=== PATIENT | male | born 1945 | race Caucasian/White ===

== ENCOUNTER 2023-02-14 16:32 | Emergency (ER) | payer MEDICARE, SELFPAY ==
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
--- NOTE | ~2023-02-14 | XR_ITS ---
EXAM: XR abdomen/kub 1V DATE: 02/14/2023 17:12 HISTORY: left anterior abd. pain and bruising . COMPARISON: None available. FINDINGS: Clear lung bases. Normal bowel gas pattern. No organomegaly. Multiple pelvic phleboliths. Severe lumbar degenerative disc disease. Severe right hip arthritis. IMPRESSION: No acute osseous finding. No radiographic evidence of obstruction or ileus. Reviewed, dictated and finalized at location K. IMPRESSION: No acute osseous finding. No radiographic evidence of obstruction o r ileus.
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
[2023-02-14 16:48] VITALS: BP 156/74; PULSE 63; RESP 18; TEMP 36.6; O2SAT 100
== END 2023-02-14 17:32 | disposition home or self-care (01) ==
PROVIDERS: Emergency Provider Nurse Practitioner Family
DX: S80.812A Abrasion, left lower leg, initial encounter (principal); S20.212A Contusion of left front wall of thorax, initial encounter; V18.4XXA Pedal cycle driver injured in noncollision transport accident in traffic accident, initial encounter; Y93.55 Activity, bike riding; F41.9 Anxiety disorder, unspecified; F32.A Depression, unspecified
CPT/HCPCS: 71046; 71100; 74018; 99213; G0463

== ENCOUNTER 2023-12-13 11:51 | Emergency (ER) | payer MEDICARE, SELFPAY ==
--- NOTE | 2023-12-13 12:03 | ED.EAR ---
HPI - Ear Problem General Chief complaint: Ear Stated complaint: blocked ears Time Seen by Provider: 12/13/23 12:03 Source: patient Mode of arrival: ambulatory Limitations: no limitations History of Present Illness HPI Narrative: 78 yo M reports bilateral cerumen impaction. Was just at office to have his hearing aids checked and ear tech told him he needed ear wax removed. Pt denies pain. All systems reviewed and negative except as noted above. Related Data Home Medications Medication Instructions Recorded Confirmed clonazepam 1 mg tablet 1 mg PO DAILY 02/14/23 12/13/23 imipramine HCl 25 mg tablet 25 mg PO DAILY 02/14/23 12/13/23 Allergies Allergy/AdvReac Type Severity Reaction Status Date / Time No Known Allergies Allergy Verified 12/13/23 12:08 Review of Systems Review of Systems: CONSTITUTIONAL: Denies fever, chills, or sweats. EYES: Denies visual changes, redness, or discharge. ENT: Denies rhinorrhea, congestion, sore throat, or otalgia. Reports bilateral cerumen impaction. CARDIOVASCULAR: Denies chest pain, palpitations, or edema. RESPIRATORY: Denies cough or dyspnea. GASTROINTESTINAL: Denies abdominal pain, nausea, vomiting, or diarrhea. GENITOURINARY: Denies dysuria or hematuria. SKIN: Denies rash or itching. MUSCULOSKELETAL: Denies back pain, joint pain, or myalgia. NEUROLOGIC: Denies headache, numbness, or weakness. PSYCHIATRIC: Denies anxiety or depression. All other systems reviewed are negative, except as documented in HPI. PMFSH Family History Family History Father Hypertension Family history of lung cancer Grandparent Family history of lung cancer Social History Social History Alcohol intake: current Comments At time of signature, agree with nursing past medical, surgical, social and family history. There is no relevant family history pertinent to the presenting complaint. Exam Narrative: GENERAL: This is a well-nourished, well-developed patient, in no apparent distress. HEAD: normocephalic, atraumatic. EYES: PERRL. Sclera clear/white. Vision is grossly intact. EARS: External ears normal, Cerumen impacted to bilateral ear canals. After irrigation , bilateral TMs normal. no perforation bilaterally. NOSE: External nose normal NECK: Neck supple, non-tender without lymphadenopathy, masses or thyromegaly. CARDIOVASCULAR: Regular rate and rhythm without murmurs, gallops, or rubs. RESPIRATORY: Clear to auscultation. Breath sounds equal bilaterally. No wheezes, rales, or rhonchi. SKIN: warm, Dry, intact with no suspicious lesions or rash, good texture and turgor. NEURO: awake, alert, and oriented to person, place and time. There were no obvious focal neurologic abnormalities. EXTREMITIES: No joint tenderness, effusion, or edema noted. Course Course Level of Care: Express Care Visit Vital Signs Vital signs: Vital Signs Temperature 36.6 C 12/13/23 12:08 Pulse Rate 42 L 12/13/23 12:08 Respiratory Rate 16 12/13/23 12:08 Blood Pressure 145/77 H 12/13/23 12:08 Pulse Oximetry 99 12/13/23 12:08 Oxygen Delivery Room Air 12/13/23 12:08 Temperature 36.6 C 12/13/23 12:08 Pulse Rate 42 L 12/13/23 12:08 Respiratory Rate 16 12/13/23 12:08 Blood Pressure 145/77 H 12/13/23 12:08 Pulse Oximetry 99 12/13/23 12:08 Oxygen Delivery Room Air 12/13/23 12:08 Reviewed Procedures Ear Wax Removal Both Ears: Ear Wax Removal Date: 12/13/23 Ear Wax Removal Time: 12:30 Cerumenolytic Used: other ( warm water) Results: Re-examined: cerumen removed completely TM Examination: TM(s) intact, normal appearance Ear Canal Exam: atraumatic Patient Tolerated Procedure: well Complications: no problems Technique: ear canal irrigated and ear canal curetted Medical Decision Making
[2023-12-13 12:08] VITALS: BP 145/77; PULSE 42; RESP 16; TEMP 36.6; O2SAT 99
== END 2023-12-13 12:34 | disposition home or self-care (01) ==
PROVIDERS: Emergency Provider Nurse Practitioner Family; PCP Nurse Practitioner Family
DX: H61.23 Impacted cerumen, bilateral (principal); F41.9 Anxiety disorder, unspecified; F32.A Depression, unspecified
CPT/HCPCS: 69210; 99213; G0463

== ENCOUNTER 2024-12-07 11:20 | Emergency (ER) | payer MEDICARE, SELFPAY ==
[2024-12-07 11:32] VITALS: BP 146/75; PULSE 65; RESP 18; TEMP 36.8; O2SAT 100
--- NOTE | 2024-12-07 11:34 | ED_ITS ---
HPI - Ear Problem General Chief complaint: Ear Stated complaint: bilateral Ear Wax stuck Time Seen by Provider: 12/07/24 12:03 Source: patient, RN notes reviewed and old records reviewed Mode of arrival: ambulatory Limitations: no limitations History of Present Illness HPI Narrative: 79-year-old male presents to the [facility] with concerns ear wax in his ears, worse on the right than the left. States that 4 days ago he felt like his ears were ?stopped up. ? States that about a year ago he started having some abnormal sounds with his hearing aids and was told that he had earwax impaction. States he is having those abnormal sounds currently Treatment prior to arrival: none Related Data Home Medications ?Medication ?Instructions ?Recorded ?Confirmed ?Last Taken ?Type clonazepam 1 mg tablet 1 mg PO DAILY 02/14/23 12/13/23 Unknown History imipramine HCl 25 mg tablet 25 mg PO DAILY 02/14/23 12/13/23 Unknown History Allergies Allergy/AdvReac Type Severity Reaction Status Date / Time No Known Allergies Allergy Verified 12/07/24 11:39 Review of Systems Review of Systems: All systems reviewed & are unremarkable except as noted in HPI and below Constitutional: Constitutional: Reports no additional constitutional complaints ENT: Reports as per HPI Cardiovascular: Cardiovascular: Reports no additional cardiovascular complaints, Denies chest pain and Denies dyspnea Respiratory: Respiratory: Reports no additional respiratory complaints, Denies chest congestion, Denies cough and Denies dyspnea Musculoskeletal: Musculoskeletal: Reports no additional musculoskeletal complaints Integumentary/Breasts: Skin/Breast: Reports system reviewed and no additional complaints, except as docu PMFSH Family History Family History Father Hypertension Family history of lung cancer Grandparent Family history of lung cancer Social History Social History Alcohol intake: current Comments At the time of my signature, I reviewed and agree with the nursing past medical, surgical, social, and family history. There is no relevant family history pertinent to the patient complaint. Exam Const: General: cooperative, healthy appearing, comfortable, no acute distress, well developed, alert and well nourished Nutritional Appearance: well nourished Orientation/consciousness: patient oriented x3 Limitations: no limitations HENMT: Head: normal to inspection Ears: external ears normal, mastoids normal, no periauricular adenopathy, Abnormal EAC present cerumen impaction bi lateral (Greater on right than left) and unable to visualize TM bilaterally Eyes: General: appearance normal, both eyes and all related structures Alignment and Position: alignment normal Neck: Neck: normal visual inspection, full ROM, no lymphadenopathy and no men ingeal signs Chest: Chest palpation & inspection: normal inspection of the chest Resp: Effort & Inspection: normal respiratory effort and able to speak in complete sentences Auscultation: clear to auscultation bilaterally, no crackles, no rales, no rhonchi and no wheezes Cardio: Rate: regular rate Skin: General skin exam: normal color and no rashes or lesions noted Neuro: General: patient oriented x3, gait normal, moves all extremities and no meningeal signs Cognition (Neuro): normal cognition Speech: normal speech Gait exam (Neuro): Normal gait present Extrem: General: normal to inspection, full ROM, capillary refill normal and normal gait Psych: Appearance: grossly normal and well kempt Mental Status: mental status grossly normal Speech and movement: Normal speech and movement present and Clear speech present Affect: normal affect Attitude: cooperative Course Course Level of Care: Express Care Visit Vital Signs Vital signs: Vital Signs Temperature 98.2 F 12/07/24 11:32 Pulse Rate 65 12/07/24 11:32 Respiratory Rate 18 12/07/24 11:32 Blood Pressure 146/75 H 12/07/24 11:32 Pulse Oximetry 100 12/07/24 11:32 Oxygen Delivery Room Air 12/07/24 11:32 Temperature 98.2 F 12/07/24 11:32 Pulse Rate 65 12/07/24 11:32 Respiratory Rate 18 12/07/24 11:32 Blood Pressure 146/75 H 12/07/24 11:32 Pulse Oximetry 100 12/07/24 11:32 Oxygen Delivery Room Air 12/07/24 11:32 Reviewed Procedures Ear Wax Removal Both Ears: Ear Wax Removal Date: 12/07/24 Ear Wax Removal Time: 12:10 Cerumenolytic Used: other (peroxide and water) Results: Re-examined: cerumen removed completely TM Examination: TM(s) intact, normal appearance Ear Canal Exam: atraumatic Patient Tolerated Procedure: well Complications: no problems Technique: ear canal irrigated and ear canal curetted Medical Decision Making MDM Narrative Medical decision making narrative: Patient sitting comfortably in exam room. Nontoxic, vitals stable. Patient in no acute distress Patient presents for ear wax impaction. Cleaned ears with water peroxide combin ation. Patient tolerated well Discussed [id number] treatments Patient appropriate for outpatient treatment and follow-up Discharge instructions reviewed with patient, as well as provided in writing per nursing staff. The instructions also include specific and strict return/GO TO THE ER as well as f/u information. All questions have been answered, and the patient deny any further questions with discharge and discharge plan. Some parts of this dictation were generated by voice recognition software and may contain typographical and/or grammatical inaccuracies. Differential Diagnosis Differential Diagnosis: Cerumen impaction, otitis media Medical Records Medical records reviewed: Yes I reviewed the external patient's medical records. Vital Signs Vital Signs: Vital Signs Temperature 98.2 F 12/07/24 11:32 Pulse Rate 65 12/07/24 11:32 Respiratory Rate 18 12/07/24 11:32 Blood Pressure 146/75 H 12/07/24 11:32 Pulse Oximetry 100 12/07/24 11:32 Oxygen Delivery Room Air 12/07/24 11:32 Temperature 98.2 F 12/07/24 11:32 Pulse Rate 65 12/07/24 11:32 Respiratory Rate 18 12/07/24 11:32 Blood Pressure 146/75 H 12/07/24 11:32 Pulse Oximetry 100 12/07/24 11:32 Oxygen Delivery Room Air 12/07/24 11:32 Reviewed Lab Data Lab results reviewed: Yes I reviewed the patient's lab results. Labs: Reviewed Critical Care Time Critical Care Time Critical Care Time: No Discharge Plan Discharge Clinical Impression: Bilateral impacted cerumen Patient Disposition: Home, Self-Care Condition: Stable Instructions: Antibiotic Form, Carbamide Peroxide (Into the ear) Additional Instructions: You had Cerumen (EAR wax impaction). Do not use Q-tips or put anything in the ear. This can damage the ear. Instead , use Debrox or ear wax remover. Place 5 drops in ear after a hot shower and place a warm compress over the ear for 20 minutes. alternate years doing this every 3-4 days. It will break up the wax gently. Do not use too much pressure. Once you have all of the cerumen out of your ears, you may do preventative treatment to prevent this from happening again. Use 5 drops once weekly after a hot shower. Patient Language: Iranian Prescriptions: No Action clonazepam 1 mg tablet 1 mg PO DAILY imipramine HCl 25 mg tablet 25 mg PO DAILY Follow-up/Referrals: ZHANE,TXE ROACH [Primary Care Provider] - 2 Weeks ([facility] care follow up ) Time of Disposition: 12:19
[2024-12-07] MEDS: HYDROGEN PEROXIDE 3% SOLN(*SP) 473 ML BOTTLE 120 ML IRRIGATION (12:09)
--- OUTSIDE RECORDS SUMMARY | 2024-12-07 13:19 | XMS_ITS ---
Author Organization [facility] Address [address] [facility] [address] [place] [address] Care Team Providers Care Advanced Practice Nurse Name Role Phone Kiesha Diehl Unavailable [phone] Fred Lr Unavailable [phone] REASON FOR VISIT phq less than 5, Anger issues, mental issues over the years(suicidal, depression, panic attack, anxiety and paranoia, related to time he served in [employer] ), Medications Medication SIG (Take, Route, Fr equency, Duration) Notes Start Date End Date Status clonazePAM 1 MG 1 tablet Oral Once a day for 30 days 07/14/2024 Active Imipramine HCl 50 MG 3 tablets every nig ht Oral Once a day for 90 days Active Social History Tobacco Use: Social History Observation Description Date Details (start date - stop date) Former Smoker NA - NA Sex Assigned At : Social History Observation Description Sex Assigned At Male Household Question Answer Notes Marital status: Tobacco Control (Standard) Question Answer Notes Tobacco use: Former smoker Encounters Encounter Location Date Provider Diagnosis [facility] [employer] [facility] [address] [address] 10/21/2024 Fred Lr Generalized anxiety disorder F41.1 and Major depression, recurrent, full remission F33.42 Assessments Encounter Date Diagnosis (ICD Code) Assessment Notes Treatment Notes Treatment Clinical Notes Section Notes 10/21/2024 Generalized anxiety disorder (ICD-10 - F41.1) Efra Nina is a 78 year old male seen today for initial assessment to start individual psychotherapy. He has seen Kiesha Diehl for medication therapy. Hx of depression, which is in remission, and anxiety reported by client. Beliefs that he has suffered from both for most of his life. One psych admission reported by client due to entertaining suicidal thoughts. Hx positive positive for out patient therapy. Client admitted that he continues to carry a lot of guilt due to of a former co-worker who he believes committed suicide. Client born in [facility] but grew up all over the place due to father's employment. He described childhood a good in spite of having moved around a lot. Client has been for many years and has a son and daugher. Relationship with children is good. Relationship with mother was better then with father, we butted heads a lot . Client is one three; two brothers who he has a good relationship with. 10/21/2024 Major depression, recurrent, full remission (ICD-10 - F33.42) Efra Nina is a 78 year old male seen today for initial assessment to start individual psychotherapy. He has seen Kiesha Diehl for medication therapy. Hx of depression, which is in remission, and anxiety reported by client. Beliefs that he has suffered from both for most of his life. One psych admission reported by client due to entertaining suicidal thoughts. Hx positive positive for out patient therapy. Client admitted that he continues to carry a lot of guilt due to of a former co-worker who he believes committed suicide. Client born in [facility] but grew up all over the place due to father's employment. He described childhood a good in spite of having moved around a lot. Client has been for many years and has a son and daugher. Relationship with children is good. Relationship with mother was better then with father, we butted heads a lot . Client is one three; two brothers who he has a good relationship with. 10/21/2024 Other Client participated in individual psychotherapy(CB T/Supportive) related to his hx of anxiety and depression. Based on today's session continued psychotherapy is recommended with change in frequency of session(two weeks). Client presented to session well groomed and fully oriented with no risk of harm to self or others. Client verbal and engaged through out session becoming tearful at one point during session. Reported upon presentation that he has been okay since last seen on 09.15.2024. Added that he has been calmer and not as upset. continues to comment to the change in him. Briefly spoke about his concern and worry over 28 year old granddaughter and her weight issues. Primary focus of session however continued to be his time in [place] and working for the [employer] and how both have contributed to his depression and anxiey. Client receptive to session feedback. Next session in two weeks. Efra Nina is a 78 year old male seen today for initial assessment to start individual psychotherapy. He has seen Kiesha Diehl for medication therapy. Hx of depression, which is in remission, and anxiety reported by client. Beliefs that he has suffered from both for most of his life. One psych admission reported by client due to entertaining suicidal thoughts. Hx positive positive for out patient therapy. Client admitted that he continues to carry a lot of guilt due to of a former co-worker who he believes committed suicide. Client born in [facility] but grew up all over the place due to father's employment. He described childhood a good in spite of having moved around a lot. Client has been for many years and has a son and daugher. Relationship with children is good. Relationship with mother was better then with father, we butted heads a lot . Client is one three; two brothers who he has a good relationship with. Plan Of Treatment Next Appt Details Follow Up: 2 Weeks, Reason: Provider Name:Fred garvin, 12/15/2024 01:00:00 PM, [facility] [facility], [address], [address], Provider Name:Kiesha Diehl, 01/12/2025 08:45:00 AM, [address], [address], [address], Progress Notes * EFRA NINA EDUARDODOB:1945 (78 yo M)Acc No.[id number]:10/21/2024 Patient: EFRA JEREZ Provider: Edvin Lr LCPC :1945 A ge:78 Y S ex:Male Date:10/21/2024 Address:[address] [place], [place] [id number] Data: * Time Tracker: * Date Start Time End Time Duration User Type Captured By Mode Notes 10/21/2024 01:55 PM 02:53 PM 00:58:32 Therapist Fred Lr Timer * Chief Complaints: * P hq less than 5 Anger issues, mental issues over the years(suicidal, depression, panic attack, anxiety and paranoia, related to time he served in [place] ), * HPI: D epression Screening: ZOIE-7 (2018 Edition) F eeling nervous, anxious, or on edge N ot at all N ot being able to stop or control worrying?Not at all W orrying too much about different things N ot at all T rouble relaxing N ot at all B eing so restless that it is hard to sit still N ot at all B ecoming easily annoyed or irritable N ot at all F eeling afraid as if something awful might happen N ot at all I f you checked any problems, how difficult have they made it for you to do your work, take care of things at home, or get along with other people? N ot difficult at all I nterpretation of Total ( 0 to 4) No Anxiety Referral source s elf-referral . A nger management ?with a history of intermittent explosive disorder with aggressive behaviors(down grading self hitting and kicking objects) with inappropriate anger which has been long standing (probably for the pst ten years), aggravated by due to his experiences in [place], (9 months there), and relieved by compliance with medication therapy active counseling . A nxiety w ith excessive worry(about blaming self when something goes wrong and get downs on self, beats self, wants to be a perfectionist and suffers from survival guilt, and lettingself down)< with panic attacks which has been long-standing(maybe for as long as he can recall, maybe since 1989), aggravated by difficult work, financial and/or relationship issues and relieved by compliance with medication therapy active counseling .?Depression w ith feelings of guilt with sad mood with suicidal thoughts(last had thoughts ) with feeling of hopelessness and helplessness which has been long-standing(since 1994), aggravated by thoughts he was to blame for an ex employee's , and relieved by compliance with medication therapy active counseling . H omicidal ideation D enied by client . M ood lability D enied by client . O bsessive thoughts w hich cause marked distress which interfere with activities of daily living which has been long-standing(for as long as he can recall), aggravated by time in [place] and of a former employee(1994), and relieved by compliance with medication therapy active counseling . P sychosis D enied by client . S leep disturbance w ith difficulty falling asleep with difficulty staying asleep has been long-standing(since 1994) aggravated by time in [place] and\ of a former client and relieved by compliance with medication therapy . S ubstance abuse D enied by client . S uicidal ideation has a history of previous suicide attempts(1994) last had thoughts in 1994, aggravated by(Time in [place] and of a former employee) and relieved by active counseling with access to local suicide hotline and prevention . A DHD D enied . P sychotherapy H x positive for out patient therapy. . P TSD D enied . M manuel N o impairment present or history of memory concerns reports. . A ppetite u p and down . 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 C urrent probation / parole n o . H istory of arrests n o . H istory of incarcerations n o .?Legal history n o . P ending charges n o . C [place]-Suicide Severity Rating Scale: Suicide Risk (CSRS-screener) i n the past one month Have you wished you were or wished you could go to sleep and not wake up? N o D epression screening: PHQ-9 L ittle interest or pleasure in doing things?Not at all F eeling down, depressed, or hopeless N ot at all T rouble falling or staying asleep, or sleeping too much N ot at all F eeling tired or having little energy N ot at all P oor appetite or overeating N ot at all F eeling bad about yourself or that you are a failure, or have let yourself or your family down N ot at all T rouble concentrating on things, such as reading the newspaper or watching television N ot at all M oving or speaking so slowly that other people could have noticed; or the opposite, being so fidgety or restless that you have been moving around a lot more than usual N ot at all T houghts that you would be better off or of hurting yourself in some way N ot at all Intervention D epression Screening Findings N egative S uicide Risk Assessment Performed 0 10/21/2024 * Family History: F ather: . M other: . 2 brother(s) . 1 son(s) , 1 daughter(s) . .? Relationship with brothers is good while relationship children is also good; relationship with father was not that good we butted heads ; relationship with mother was great. * Social History: T obacco Use: T obacco Control (Standard) T obacco use: F ormer smoker M igrated Social History: M igrated Social History: Alcohol Intake: Occasional 01/14/2024,Tobacco Years: Former smoker 01/14/2024. H ousehold: H ousehold M arital status: m arried * Medications: T akingclonazePAM 1 MG Tablet 1 tablet Oral Once a day Imipramine HCl 50 MG Tablet 3 tablets every night Oral Once a day Medication List reviewed and reconciled with the patientTaking clonazePAM 1 MG Tablet 1 tablet Oral Once a day Taking Imipramine HCl 50 MG Tablet 3 tablets every night Oral Once a day Medication List reviewed and reconciled with the patient Assessment: * Assessment: 1. G eneralized anxiety disorder - F41.1 (Primary) 2 . M ajor depression, recurrent, full remission - F33.42 Efra Nina is a 78 year old male seen today for initial assessment to start individual psychotherapy. He has seen Kiesha Diehl for medication therapy. Hx of depression, which is in remission, and anxiety reported by client. Beliefs that he has suffered from both for most of his life. One psych admission reported by client due to entertaining suicidal thoughts. Hx positive positive for out patient therapy. Client admitted that he continues to carry a lot of guilt due to of a former co-worker who he believes committed suicide. Client born in [facility] but grew up all over the place due to father's employment. He described childhood a good in spite of having moved around a lot. Client has been for many years and has a son and daugher. Relationship with children is good. Relationship with mother was better then with father, we butted heads a lot . Client is one three; two brothers who he has a good relationship with. Plan: * Treatment: * Procedure Codes: 9 6127 BEHAV ASSMT W/SCORE & DOCD/STAND [id number] PSYCHOTHERAPY W/PATIENT 60 MINUTES * Follow Up: 2 Weeks * Billing Information: * Visit Code: * Procedure Codes: 42506 BEHAV ASSMT W/SCORE & DOCD/STAND INSTRUMENT. 10909 PSYCHOTHERAPY W/PATIENT 60 MINUTES. * RVISOR FINISHING Sign off status: Completed Signatures: No Ad Hoc Signature Added true * Provider: Edvin Lr LCPC Date: 0 10/21/2024 Generated for Ramy delgado/Milagro/Alexandra on: 0 12/07/2024 01:18 PM SUPERVISOR FINISHING History and Physical Notes * HPI (History of Present Illness) Category Sub-Category Detail Notes Category Not es Depression screening PHQ-9 Little inte rest or pleasure in doing things: Not at all Feeling down, depressed, or hopeless: No t at all Trouble falling or staying asleep, or sl eeping too much: Not at all Feeling tired or having little energy: N ot at all Poor appetite or overeating: Not at all Feeling bad about yourself o r that you are a failure, or have let yourself or your family down: Not at all Trouble concentrating on thi ngs, such as reading the newspaper or watching television: Not at all Moving or speaking so slowly that other people could have noticed; or the opposite, being so fidgety or restless that you have been moving around a lot more than usual: Not at all Thoughts that you would be b veto off or of hurting yourself in some way: Not at all Intervention Depression Screening Findings: N egative Suicide Risk Assessment Performed: 10/21 Depression Screening ZOIE-7 (2018 Edition) Feeling nervous, anxious, or on edge: Not at all Referral source self-referral . Anger management with a history of intermittent explosive disorder with aggressive behaviors(down grading self hitting and kicking objects) with inappropriate anger which has been long standing (probably for the pst ten years), aggravated by due to his experiences in [place], (9 months there), and relieved by compliance with medication therapy active counseling . Anxiety with excessive worry(about blaming self when something goes wrong and get downs on self, beats self, wants to be a perfectionist and suffers from survival guilt, and lettingself down)< with panic attacks which has been long-standing(maybe for as long as he can recall, maybe since 1989), aggravated by difficult work, financial and/or relationship issues and relieved by compliance with medication therapy active counseling . Depression with feelings of guilt with sad mood with suicidal thoughts(last had thoughts ) with feeling of hopelessness and helplessness which has been long-standing(since 1994), aggravated by thoughts he was to blame for an ex employee's , and relieved by compliance with medication therapy active counseling . Homicidal ideation Denied by client . Mood lability Denied by client . Obsessive thoughts which cause marked distress which interfere with activities of daily living which has been long-standing(for as long as he can recall), aggravated by time in [place] and of a former employee(1994), and relieved by compliance with medication therapy active counseling . Psychosis Denied by client . Sleep disturbance with difficulty falling asleep with difficulty staying asleep has been long-standing(since 1994) aggravated by time in [place] and\ of a former client and relieved by compliance with medication therapy . Substance abuse Denied by client . Suicidal ideation has a history of previous suicide attempts(1994) last had thoughts in 1994, aggravated by(Time in [place] and of a former employee) and relieved by active counseling with access to local suicide hotline and prevention . ADHD Denied . Psychotherapy Hx positive for out patient therapy. . PTSD Denied . Memory No impairment present or history of memory concerns reports. . Appetite up and down . 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 Current probation / parole no . History of arrests no . History of incarcerations no . Legal history no . Pending charges no . Not being able to stop or control worryi ng: Not at all Worrying too much about different things : Not at all Trouble relaxing: Not at all Being so restless that it is hard to sit still: Not at all Becoming easily annoyed or irritable: No t at all Feeling afraid as if something awful teresa ht happen: Not at all If you checked any problems, how difficult have they made it for you to do your work, take care of things at home, or get along with other people?: Not difficult at all Interpretation of Total: (0 to 4) No Anx iety [place]-Suicide Severity Rating Scale Suicide Risk (CSRS-screener) in the past one month Have you wished you were or wished you could go to sleep and not wake up?: No
--- OUTSIDE RECORDS SUMMARY | 2024-12-07 13:19 | XMS_ITS ---
Author Organization [facility] [employer] [facility] Address [address] [facility] [address] [place] [address] Care Team Providers Care Drug Worker Name Role Phone Kiesha Diehl Unavailable [phone] Fred Lr Unavailable [phone] REASON FOR VISIT Confirmed, Anger issues, mental issues over the years(suicidal, depression, panic attack, anxiety and paranoia, related to time he served in [employer] ), Medications Medication SIG (Take, Route, Fr [...] smoker Encounters Encounter Location Date Provider Diagnosis [facility] [address] [facility] [address] [place] [address] 11/26/2024 Fred Lr Generalized anxiety disorder F41.1 ; Major depression, recurrent, full remission F33.42 and Post-traumatic stress disorder, chronic F43.12 Assessments Encounter Date Diagnosis (ICD Code) Assessment Notes Treatment Notes Treatment Clinical Notes Section Notes 11/26/2024 Generalized anxiety disorder (ICD-10 - F41.1) Efra [...] he believes committed suicide. Client born in [facility] but grew up all over the place [...] who he has a good relationship with. 11/26/2024 Major depression, recurrent, full remission (ICD-10 - [...] he believes committed suicide. Client born in [facility] but grew up all over the place [...] who he has a good relationship with. 11/26/2024 Post-traumatic stress disorder, chronic (ICD-10 - F43.12) Efra Nina is a 78 year old [...] he believes committed suicide. Client born in [facility] but grew up all over the place [...] who he has a good relationship with. 11/26/2024 Other Client particiapted in individual psychotherapy (CBT/Supportive) related to his hx of anxiety depression and PTSD. Based on today's session continued psychotherapy is recommended with no changes to treatment plan. Client presented well groomed and fully oriented with no risk of harm to self or others. Client verbal and engaged through out session with appropriate mood and affect. Reported upon presentation that he has been doing good since last seen on 11.05.2024. Session continued to addresss client's time in [place] and associated distorted and irrational beliefs which have contributed to and supported anxiety and PTSD. Client tearful at times as he discussed struggle with survival's guilt. Believes however that he has been more calm as of late and not as angry. Noted that has shared with him that he has been more calm and not so quick to anger. Client receptive to session feedback. Addded that he is looking forward to [employer] trip later this month. Next session in three weeks. Efra Nina is a 78 year [...] he believes committed suicide. Client born in [facility] but grew up all over the place [...] Of Treatment Next Appt Details Follow Up: 3 Weeks, Reason: Provider Name:Fred garvin, 12/15/2024 01:00:00 PM, [address], [place] [address], [place], [address], Provider Name:Kiesha Diehl, 01/12/2025 08:45:00 AM, [address], [place] [address], [place], [address], Progress Notes * EFRA NINADOB:1945 (78 yo M)Acc No.[id number]:11/26/2024 Patient: EFRA JEREZ Provider: Edvin Lr LCPC :1945 A ge:78 Y S ex:Male Date:11/26/2024 Address:[address] [place], [place] [id number] Data: * Time Tracker: * Date Start Time End Time Duration User Type Captured By Mode Notes 11/26/2024 01:57 PM 02:55 PM 00:57:40 Therapist Fred Lr Timer * Chief Complaints: * C onfirmed Anger issues, mental issues over the years(suicidal, [...] awful might happen N ot at all Referral source s elf-referral . A nger [...] down . L egal Involvement: C urrent Data Developer / social sciences research scientist n o . C urrent probation / [...] sleep and not wake up? N o i n the past one month Have you actually had any thoughts of killing yourself? N o H ave you ever done anything, started to do anything, or prepared to do anything to end your life? Y es * Family History: F ather: . M [...] ajor depression, recurrent, full remission - F33.42 3 . P ost-traumatic stress disorder, chronic - F43.12 Efra Nina is a 78 year old [...] he believes committed suicide. Client born in [facility] but grew up all over the place [...] Plan: * Treatment: * Procedure Codes: 9 0837 PSYCHOTHERAPY W/PATIENT 60 MINUTES * Follow Up: 3 Weeks * Billing Information: * Visit Code: * Procedure Codes: 99333 PSYCHOTHERAPY W/PATIENT 60 MINUTES. * E MAKER Sign off status: Completed Signatures: No Ad Hoc Signature Added true * Provider: Edvin Lr LCPC Date: 0 11/26/2024 Generated for Manni danny/Milagro/Alexandra on: 0 12/07/2024 01:18 PM SPOKE MAKER History and Physical Notes * HPI (History of Present Illness) Category Sub-Category Detail Notes Category Not es Depression Screening ZOIE-7 (2018 Edition) Feeling nervous, [...] up and down . Legal Involvement: Current Data Developer / social sciences research scientist no . Current probation / parole no [...] awful teresa ht happen: Not at all [place]-Suicide Severity Rating Scale Suicide Risk (CSRS-screener) in the past one month Have you wished you were or wished you could go to sleep and not wake up?: No in the past one month Have y ou actually had any thoughts of killing yourself?: No Have you ever done anything, started to do anything, or prepared to do anything to end your life?: Yes
--- OUTSIDE RECORDS SUMMARY | 2024-12-07 13:19 | XMS_ITS | Clinical Summary ---
Author Organization [facility] Address Critical access hospital[address] [place] [address] Care Team Providers Care Corporate Planning Manager Name Role Phone Galilea Lewis Primary Care Provider [phone] Allergies No known active allergies Medications clonazePAM (KLONOPIN) 1 MG tablet Take 1 tablet (1 mg total) by mouth every evening. 05/10/2023 Active imipramine (TOFRANIL) 50 MG tablet Take 3 tablets (150 mg total) by mouth nightly at bedtime. Active Vitamin D3 125 mcg Tab Take 1 tablet (125 mcg total) by mouth daily. Active Active Problems Problem Noted Date Diagnosed Date Adult BMI 28.0-28.9 kg/sq m 10/20/2024 Anxiety 05/13/2023 Macular degeneration of both eyes, unspecified t ype 05/13/2023 Resolved Problems Problem Noted Date Diagnosed Date Resolved Date Toenail fungus 05/13/2023 10/20/2024 Encounters Date Type Department Care Team Description 11/09/2024 Telephone [facility] [address] [phone] Galilea Lewis FNP Lab Results 11/06/2024 10:20 AM SPOOL WINDER Laboratory Only [facility] Internal [address] [phone] Galilea Lewis FNP 11/06/2024 Telephone [facility] Internal [address] [phone] Galilea Lewis FNP Advice 11/06/2024 Travel 10/20/2024 10:00 AM SPOOL WINDER Office Visit [facility] [address] [phone] Galilea Lewis FNP Physical 10/20/2024 Travel from Last 3 Months Immunizations Name Administration Dates Next Due Fluzone High Dose - >Age 65 (Prefilled Syringe) 08/09/2022,07/09/2021,06/28/2020 Hepatitis A (Havrix [address]) 10/21/2015 Influenza (Generic) 07/14/2019, 4,08/11/2013,2011 Influenza Adult (Generic) 08/05/2018,06/2017,08/02/2016,2014 PFIZER COVID-19 (SELF CAP), MRNA, LNP-S, PF, 30 MCG/0.3 ML QUYEN-SUCROSE, IM 01/15/2022 PFIZER COVID-19 (ORIGINAL FORMULATION, PURPLE CAP) mRNA, LNP-S, PF, 30 MCG/0.3 ML DOSE 07/09/2021,12/17/2020,11/25/2020 PFIZER COVID-19 BIVALENT (12 +) mRNA, LNP-S, PF, 30 MCG/0.3 ML DOSE 08/09/2022 Pneumococcal (Pneumovax 23) 01/01/2018 Pneumococcal (Prevnar 13) 12/27/2016 Shingrix 04/07/2018,12/23/2017 Tdap (Generic) 10/19/2015 Family History Medical History Relation Comments Atrial fibrillation Brother 1 Hypertension Brother 1 No Known Problems Brother 2 Cancer Father Lung Cancer Father Alzheimer's disease Maternal Grandfather Alzheimer's disease Mother Lung Cancer Paternal Grandfather Alzheimer's disease Paternal Grandmother Lung Cancer Paternal Uncle Relation Status Comments Brother 1 Alive Brother 2 Alive Father Maternal Grandfather Mother Paternal Grandfather Paternal Grandmother Paternal Uncle Social History Tobacco Use Types Packs/Day Years Used Date Smoking Tobacco: Former Cigarettes 2 14 0 11/14/1966 - 11/14/1980 Smokeless Tobacco: Never Alcohol Use Standard Drinks/Week Comments Not Currently 0 (1 standard drink = 0.6 oz pur e alcohol) 4 beers/year PHQ-2 Answer Date Recorded Patient Health Questionnaire-2 Score 1 10/20/2024 Sex and Gender Information Value Date Recorded Sex Assigned at Not on file Legal Sex Male 9:25 AM CDT Gender Identity Not on file Sexual Orientation Not on file Last Filed Vital Signs Vital Sign Reading Time Taken Comments Blood Pressure 136/70 10/20/2024 10:33 AM SPOOL WINDER Pulse 75 10/20/2024 10:33 AM SPOOL WINDER Temperature 36.8 C (98.2 F) 10/20/2024 10:33 AM SPOOL WINDER Respiratory Rate 16 10/20/2024 10:33 AM SPOOL WINDER Oxygen Saturation 97% 10/20/2024 10:33 AM SPOOL WINDER Inhaled Oxygen Concentration - - Weight 99.4 kg (219 lb 3.2 oz) 10/20/2024 10:33 AM SPOOL WINDER Height 188 cm (6' 2 ) 10/20/2024 10:33 AM SPOOL WINDER Body Mass Index 28.14 10/20/2024 10:33 AM SPOOL WINDER Plan of Treatment Health Maintenance Due Date Last Done Comments Annual Medicare Wellness Visit 2011 DTaP, Tdap and Td Vaccines (3 - Td or Tdap) 09/16/2033 09/16/2023, 10/19/2015 Pneumococcal Vaccine: 65+ Years Completed 01/01/2018, 12/27/2016 Zoster Vaccines Completed 04/07/2018, 12/23/2017 Hepatitis C Completed 05/14/2023 RSV Immunization or 60+ Years Completed 09/16/2023 COVID-19 Vaccine Completed 07/05/2024, 03/2023, 08/09/2022, Additional history exists Influenza Adult Completed 07/05/2024, 03/2023, 08/09/2022, Additional history exists PHQ-2 (Physician Skipwith) Completed 10/20/2024 Meningococcal B Vaccine Aged Out No l onger eligible based on patient's age to complete this topic Meningococcal Vaccine Aged Out No kong filomena eligible based on patient's age to complete this topic RSV Immunizations Under 20 Months Aged Out No longer eligible based on patient's age to complete this topic Procedures Procedure Name Priority Date/Time Associated Diagnosis Comments URINALYSIS, AUTO, COMPLETE Routine 11/06/2024 1:15 PM SPOOL WINDER Anxiety Mild episode of recurrent major depressive disorder (CMS/HCC) Encounter for health maintenance examination in adult COLLECTION VENOUS BLOOD VENIPUNCTURE Routine 11/06/2024 10:43 AM SPOOL WINDER Anxiety Mild episode of recurrent major depressive disorder (CMS/HCC) Encounter for health maintenance examination in adult Vitamin D deficiency, unspecified Encounter for prostate cancer screening Adult BMI 28.0-28.9 kg/sq m Elevated LDL cholesterol level CBC W/DIFF AUTOMATED Routine 11/06/2024 10:43 AM SPOOL WINDER Anxiety Mild episode of recurrent major depressive disorder (CMS/HCC) LIPID PANEL Routine 11/06/2024 10:43 AM SPOOL WINDER Adult BMI 28.0-28.9 kg/sq m Elevated LDL cholesterol level TSH W/REFLEX Routine 11/06/2024 10:43 AM SPOOL WINDER Anxiety Mild episode of recurrent major depressive disorder (CMS/HCC) VITAMIN D, 25 OH Routine 11/06/2024 10:4 3 AM SPOOL WINDER Vitamin D deficiency, unspecified URIC ACID BLOOD Routine 11/06/2024 10:43 AM SPOOL WINDER Encounter for health maintenance examination in adult Anxiety Mild episode of recurrent major depressive disorder (CMS/HCC) COMPREHENSIVE METABOLIC PANEL Routine 11/06/2024 10:43 AM SPOOL WINDER Encounter for health maintenance examination in adult Anxiety Mild episode of recurrent major depressive disorder (CMS/HCC) VITAMIN B-12 Routine 11/06/2024 10:43 AM SPOOL WINDER Anxiety Mild episode of recurrent major depressive disorder (CMS/HCC) MAGNESIUM Routine 11/06/2024 10:43 AM SPOOL WINDER Anxiety Mild episode of recurrent major depressive disorder (CMS/HCC) PROSTATE SPECIFIC ANTIGEN,SCREENING Routine 11/06/2024 10:24 AM SPOOL WINDER Encounter for prostate cancer screening FOLIC ACID SERUM Routine 11/06/2024 10:2 4 AM SPOOL WINDER Anxiety Mild episode of recurrent major depressive disorder (CMS/HCC) HEPATITIS C ANTIBODY Routine 05/14/2023 8:45 AM CDT Encounter for hepatitis C screening test for low risk patient from Last 3 Months or Most Recently Relevant to Health Maintenance Results * (ABNORMAL) URINALYSIS (11/06/2024 1:15 PM SPOOL WINDER) COLOR (U) YELLOW 11/06/2024 8:14 PM SPOOL WINDER [facility] TRANSPARENCY CLEAR CLEAR 11/06/2024 8:14 PM SPOOL WINDER [facility] SPECIFIC GRAVITY (U) 1.015 1.003 - 1.040 11/06/2024 8:14 PM SPOOL WINDER [facility] U PH 7.5 5.0 - 9.0 11/06/2024 8:14 PM SPOOL WINDER [facility] PROTEIN RANDOM (U) NEGATIVE NEGATIVE 11/06/2024 8:14 PM [facility] GLUCOSE (U) NEGATIVE NEGATIVE 11/06/2024 8:14 PM [facility] KETONES MG/DL (U) NEGATIVE NEGATIVE 11/06/2024 8:14 PM [facility] BILIRUBIN (U) NEGATIVE NEGATIVE 11/06/2024 8:14 PM [facility] BLOOD (U) NEGATIVE NEGATIVE 11/06/2024 8:14 PM [facility] UROBILINOGEN 1.0 0.0 - 2.0 EU/DL 11/06/2024 8:14 PM [facility] NITRITES NEGATIVE NEGATIVE 11/06/2024 8:14 PM [facility] LEUKOCYTES (U) NEGATIVE NEGATIVE 11/06/2024 8:14 PM [facility] RBC/HPF 0-3 0 - 3 /HPF 11/06/2024 8:15 PM [facility] WBC/HPF 0-3 0 - 3 /HPF 11/06/2024 8:15 PM [facility] EPI/HPF 0-3 /HPF 11/06/2024 8:15 PM SPOOL WINDER [facility] BACTERIA (U) TRACE(A) NONE SEEN 11/06/2024 8:15 PM SPOOL WINDER [facility] URINE SPECIMEN OBTAINED BY CLEAN CATCH PROCEDURE / Unknown 11/06/2024 1:15 PM SPOOL WINDER us Galilea Chanzer FORENSIC MANAGER URINE ORDERABLES Final Result Performing Organization Address City/[facility]/ZIP Co de Phone Number [facility] [address] [place] [address], [place] [phone] * TSH W/REFLEX (11/06/2024 10:43 AM SPOOL WINDER) TSH 2.352 0.358 - 3.740 uIU/ML 11/06/2024 4:00 PM SPOOL WINDER [facility] 11/06/2024 10:4 3 AM SPOOL WINDER us Galilea Chanzer FORENSIC MANAGER LABORATORY Final Result Performing Organization Address City/[facility]/ZIP Co de Phone Number [facility] [address], [place] [phone] * VITAMIN B-12 (11/06/2024 10:43 AM SPOOL WINDER) VITAMIN B12 S/P/B 562 193 - 986 PG/ML 11/06/2024 4:00 PM SPOOL WINDER [facility] 11/06/2024 10:4 3 AM SPOOL WINDER us Galilea Chanzer FORENSIC MANAGER LABORATORY Final Result Performing Organization Address City/[facility] Co de Phone Number [facility] [address] [place] [address], [place] [phone] * (ABNORMAL) COMPREHENSIVE METABOLIC PANEL (11/06/2024 10:43 AM SPOOL WINDER) [facility] SODIUM S/P/B 140 136 - 145 MMOL/L 11/06/2024 4:00 PM [facility] POTASSIUM S/P/B 4.6 3.5 - 5.1 MMOL/L 11/06/2024 4:00 PM [facility] CHLORIDE S/P/B 103 98 - 107 MMOL/L 11/06/2024 4:00 PM [facility] CO2 33.3(H) 21 - 32 MMOL/L 11/06/2024 4:11 PM [facility] Comment:RESULTS CONFIRMED-TE ST REPEATED GLUCOSE 103(H) 70 - 99 MG/DL 11/06/2024 4:00 PM [facility] BUN 16 7 - 18 MG/DL 11/06/2024 4:00 PM [facility] CREATININE S/P/B 0.97 0.70 - 1.30 MG/DL 11/06/2024 4:00 PM [facility] CALCIUM S/P/B 8.7 8.4 - 10.5 MG/DL 11/06/2024 4:00 PM [facility] BILIRUBIN TOTAL S/P/B 0.8 0.2 - 1.0 MG/DL 11/06/2024 4:00 PM [facility] ALKALINE PHOSPHATASE S/P/B 98 45 - 115 U/L 11/06/2024 4:00 PM [facility] AST 27 15 - 37 U/L 11/06/2024 4:00 PM [facility] ALT 27 16 - 63 U/L 11/06/2024 4:00 PM [facility] TOTAL PROTEIN S/P/B 6.6 6.4 - 8.2 G/DL 11/06/2024 4:00 PM [facility] ALBUMIN S/P/B 3.9 3.4 - 5.0 G/DL 11/06/2024 4:00 PM SPOOL WINDER [facility] ANION GAP 3.7(L) 5 - 15 MMOL/L 11/06/2024 4:11 PM SPOOL WINDER [facility] Comment:REFERENCE RANGE NOT ESTABLISHED OSMOLALITY (CALC) 291 MOSM/KG 025 4:00 PM SPOOL WINDER [facility] Comment:REFERENCE RANGE NOT ESTABLISHED GFR ESTIMATE 80(L) >90 ML/MIN/1. 73 M2 11/06/2024 4:00 PM SPOOL WINDER [facility] GFR NOTES GFR REFERENCE S: 11/06/2024 4:00 PM [facility] Comment: THE ESTIMATED GFR IS CALCULATED USING THE 2020 CKD-EPI EQUATION. THE FOLLOWING CATEGORIES FOR GRADING RENAL FUNCTION ARE RECOMMENDED BY THE INTERNATIONAL SOCIETY OF NEPHROLOGY (KDIGO 2012 CLINICAL PRACTICE GUIDELINE). G1,NORMAL OR HIGH: >89 ml/min/1.73 m2 G2,MILDLY DECREASED: 60-89 ml/min/1.73 m2 G3A,MILDLY TO MODERATELY DECREASED: 45-59 ml/min/1.73 m2 G3B,MODERATELY TO SEVERELY DECREASED: 30-44 ml/min/1.73 m2 G4,SEVERELY DECREASED: 15-29 ml/min/1.73 m2 G5,KIDNEY FAILURE: <15 ml/min/1.73 m2 11/06/2024 10:4 3 AM SPOOL WINDER us Galilea RAHMAN LABORATORY Final Result [facility] [address] [place] [address], * LIPID PANEL (11/06/2024 10:43 AM SPOOL WINDER) CHOLESTEROL 164 <200 MG/DL 11/06/2024 4:00 PM SPOOL WINDER [facility] TRIGLYCERIDES 108 <150 MG/DL 11/06/2024 4:00 PM SPOOL WINDER [facility] HDL 55 >40 MG/DL 11/06/2024 4:00 PM [facility] LDL-C 87 <100 MG/DL 11/06/2024 4:00 PM [facility] VLDL CALCULATION 22 5 - 28 MG/DL 11/06/2024 4:00 PM [facility] CHOL/HDL RATIO 3.0 0.0 - 4.0 11/06/2024 4:00 PM [facility] LDL/HDL 1.6 0.41 - 2.13 11/06/2024 4:00 PM [facility] NON HDL CHOLESTEROL 109 <140 MG/DL 11/06/2024 4:00 PM [facility] 11/06/2024 10:4 3 AM SPOOL WINDER Galilea Lewis [facility] LAB[facility]AT[facility] Final Result [facility] [address] [place] [address], * (ABNORMAL) CBC W/DIFF AUTOMATED (11/06/2024 10:43 AM SPOOL WINDER) WBC 5.15 4.00 - 10.80 x10'3/uL 11/06/2024 2:32 PM [facility] RBC 4.46(L) 4.50 - 6.10 x10'6/uL 11/06/2024 2:32 PM [facility] HGB 14.7 13.0 - 18.0 G/DL 11/06/2024 2:32 PM [facility] HCT 44.7 37.0 - 52.0 % 11/06/2024 2:32 PM [facility] MCV 100.2(H) 78.0 - 100.0 FL 11/06/2024 2:32 PM [facility] MCH 33.0(H) 27.0 - 31.0 PG 11/06/2024 2:32 PM [facility] MCHC 32.9(L) 33.0 - 36.0 G/DL 11/06/2024 2:32 PM [facility] RDW 13.6 11.5 - 14.5 % 11/06/2024 2:32 PM [facility] PLT 267 150 - 350 x10'3/uL 11/06/2024 2:32 PM [facility] MPV 12.3(H) 7.4 - 10.4 FL 11/06/2024 2:32 PM [facility] DIFFERENTIAL TYPE AUTOMATED DIFFERENTIAL 11/06/2024 2:32 PM [facility] NEUTROPHILS % 60.3 % 11/06/2024 2:32 PM [facility] LYMPHOCYTES % 26.0 % 11/06/2024 2:32 PM [facility] MONOCYTES % 8.0 % 11/06/2024 2:32 PM [facility] EOSINOPHILS % 4.7 % 11/06/2024 2:32 PM [facility] BASOPHILS % 1.0 % 11/06/2024 2:32 PM [facility] IMMATURE GRANS % 0.0 % 11/06/2024 2:32 PM [facility] ABS. NEUTROPHILS 3.11 1.60 - 8.30 x10'3/uL 11/06/2024 2:32 PM [facility] ABS. LYMPHOCYTES 1.34 0.80 - 4.70 x10'3/uL 11/06/2024 2:32 PM [facility] ABS. MONOCYTES 0.41 0.00 - 1.50 x10'3/uL 11/06/2024 2:32 PM [facility] ABS. EOSINOPHILS 0.24 0.00 - 0.40 x10'3/uL 11/06/2024 2:32 PM SPOOL WINDER [facility] ABS. BASOPHILS 0.05 0.00 - 0.20 x10'3/uL 11/06/2024 2:32 PM SPOOL WINDER [facility] ABS. IMMATURE GRANULOCYTES 0.00 0.00 - 0.03 x10'3/uL 11/06/2024 2:32 PM [facility] 11/06/2024 10:4 3 AM SPOOL WINDER Galilea Chanemma [facility] LABORATORY Final Result Performing Organization Address City/[facility]/ZIP Co de Phone Number [address] [address], [place] [phone] * VITAMIN D, 25 OH (11/06/2024 10:43 AM SPOOL WINDER) VITAMIN D 25 HYDROXY TOTAL S/P/B 73.8 30 - 100 NG/ML 11/06/2024 4:00 PM SPOOL WINDER [facility] Comment: DEFICIENT <20 INSUFFICIENT 20-30 SUFFICIENT 30-100 11/06/2024 10:4 3 AM SPOOL WINDER Galilea Chanemma [facility] Final Result Performing Organization Address City/[facility] Co de Phone Number [address] [address], [place] [phone] * MAGNESIUM (11/06/2024 10:43 AM SPOOL WINDER) MAGNESIUM 2.1 1.8 - 2.4 MG/DL 11/06/2024 4:00 PM SPOOL WINDER [facility] 11/06/2024 10:4 3 AM SPOOL WINDER Galilea Chanemma [facility] Final Result Performing Organization Address City/[facility]/ZIP Co de Phone Number [address] [place] [address], * URIC ACID BLOOD (11/06/2024 10:43 AM SPOOL WINDER) URIC ACID 4.8 3.5 - 7.2 MG/DL 11/06/2024 3:05 PM SPOOL WINDER [facility] 11/06/2024 10:4 3 AM SPOOL WINDER Galilea Lewis [facility] Final Result Performing Organization Address City/[facility]/ZIP Co de Phone Number [address] [address], * PROSTATE SPECIFIC ANTIGEN,SCREENING (11/06/2024 10:24 AM SPOOL WINDER) PSA 3.61 <4.00 NG/ML 11/06/2024 3:04 PM SPOOL WINDER [facility] Comment: ASSAY PERFORMED BY ENZYME IMMUNOASSAY METHODOLOGY USING SIEMENS DIMENSION REAGENT. PATIENT RESULTS DETERMINED BY ASSAYS FROM DIFFERENT MANUFACTURERS AND/OR BY DIFFERENT METHODS MAY NOT BE COMPARABLE. 11/06/2024 10:2 4 AM SPOOL WINDER us Galilea Lewis [facility] Final Result Performing Organization Address City/[facility]/ZIP Co de Phone Number [address] [address], * FOLIC ACID SERUM (11/06/2024 10:24 AM SPOOL WINDER) FOLATE 14.2 8.6 - 58.9 NG/ML 11/06/2024 3:05 PM SPOOL WINDER [facility] 11/06/2024 10:2 4 AM SPOOL WINDER us Calero Dustinemma [facility] Final Result [facility] [address] [facility] [place] [place] [address], [place] [phone] * HEPATITIS C ANTIBODY ([facility] ONLY) (05/14/2023 8:45 AM CDT) HEPATITIS C AB NON-REACTI VE NON-REACT MIKE 05/14/2023 6:56 PM CDT [facility] Comment: ANTIBODIES TO HCV NOT DETECTED. DOES NOT EXCLUDE THE POSSIBILITY OF EXPOSURE TO HCV. 05/14/2023 8:45 AM CDT Galilea Lewis [facility] Final Result [facility] [address] [place] [address], [place] [phone] [id number] from Last 3 Months or Most Recently Relevant to Health Maintenance Insurance MED REPLACE CIGNA CIGNA [facility] Care Teams Corporate Planning Manager Relationship Specialty Start Date End Date Galilea Lewis FNP [address] [place] [address] [phone] PCP - General Nurse Practitioner Family 05/13/23
--- OUTSIDE RECORDS SUMMARY | 2024-12-07 13:19 | XMS_ITS | Patient Health Record ---
Author Organization [facility] [email or web address] Address [facility] [facility] [address] [place] [address] Care Team Providers Care Special Education Assistant Name Role Phone Kiesha Diehl Unavailable [phone] LrFred garvin Unavailable [phone] Migration, Provider Unavailable Unavailable Allergies No Known Allergies Results Component Value Reference Range Notes DRUG SCREEN, 14 DRUGS (DETEC TIMED), URINE Reviewed date:01/14/2024 12:00:00 AM Interpretation: Performing Lab: Notes/Report: Amphetamine negative Barbiturates negative Benzodiazipine negative Buprenorphine negative Cocaine negative MDMA/Ectasy negative Methadone negative Methamphetamine negative Morphine negative note ALL NEGATIVE Oxycodone negative Phenocyclidine negative THC negative Reason For Referral No Information Medications Medication SIG (Take, Route, Fr equency, [...] Question Answer Notes Tobacco use: Former smoker Problems Problem Type SNOMED Code ICD Code Onset Dates Problem Status W/U Status Risk Notes Problem Recurrent major depression in full remission (97307851) Major depressive disorder, recurrent, in full remission (F33.42) Active confirmed Problem Generalized anxiety disorder (63522279) Generalized anxiety disorder (F41.1) Active confirmed Vital Signs Heart Rate 71 /min 01/14/2024 Height-cm 190.50 cm 01/14/2024 Blood pressure diastolic 84 mm Hg 01/14/2024 Weight-kg 102.78 kg 01/14/2024 Height 75.00 in 01/14/2024 Blood pressure systolic 180 mm Hg 01/14/2024 Weight 226.60 lbs 01/14/2024 BMI 28.3 kg/m2 01/14/2024 Encounters Encounter Location Date Provider Diagnosis [place] [address] [address] 01/14/2024 Kiesha Shanita Generalized anxiety disorder F41.1 and Major depressive disorder, recurrent, in full remission F33.42 [place] [address] [address] 07/14/2024 Kiesha Shanita Major depressive disorder, recurrent, in full remission F33.42 and Generalized anxiety disorder F41.1 [place] [address] [address] 08/14/2024 Fred Lr Generalized anxiety disorder F41.1 and Major depression, recurrent, full remission F33.42 [place] [address] [address] 09/15/2024 Fred Lr Generalized anxiety disorder F41.1 and Major depression, recurrent, full remission F33.42 [place] [address] [address] 10/21/2024 Fred Lr Generalized anxiety disorder F41.1 and Major depression, recurrent, full remission F33.42 [place] [address] [address] 11/05/2024 Fredernestina Lr Generalized anxiety disorder F41.1 ; Recurrent major depressive disorder, in full remission F33.42 and Chronic post-traumatic stress disorder F43.12 [facility] [address] [address] 11/26/2024 Fred Lr Generalized anxiety disorder F41.1 ; Major depression, recurrent, full remission F33.42 and Post-traumatic stress disorder, chronic F43.12 [place] [address] [address] 12/09/2023 Provider Migration [place] [address] [address] 01/14/2024 Provider [facility], [facility] [address] [place] [address] 02/29/2024 Provider [facility], [facility] [address] [place] [address] 03/01/2024 [facility], [facility] [address] [place] [address] 05/11/2024 Kiesha Diehl [facility], [facility] [address] [place] [address] 07/14/2024 Kiesha Shanita [facility], [facility] [address] [facility] [address] [place] [address] 08/05/2024 Kiesha Diehl [facility], [facility] [address] [facility] [address] [place] [address] 08/07/2024 Kiesha Diehl [facility], [facility] [address] [facility] [address] [facility] [address] [place] [address] 08/14/2024 Kiesha Diehl Assessments Encounter Date Diagnosis (ICD Code) Assessment Notes Treatment Notes Treatment Clinical Notes Section Notes 07/14/2024 Major depressive disorder, recurrent, in full remission (ICD-10 - F33.42) 07/14/2024 Generalized anxiety disorder (ICD-10 - F41.1) 08/14/2024 Generalized anxiety disorder (ICD-10 - F41.1) Efra [...] committed suicide. Client born in [facility] but grew up all over the place [...] who he has a good relationship with. 08/14/2024 Major depression, recurrent, full remission (ICD-10 - F33.42) Efar Nina is a 78 year old male [...] committed suicide. Client born in [facility] but grew up all over the place [...] who he has a good relationship with. 09/15/2024 Generalized anxiety disorder (ICD-10 - F41.1) Efra [...] committed suicide. Client born in [facility] but grew up all over the place [...] who he has a good relationship with. 09/15/2024 Major depression, recurrent, full remission (ICD-10 - [...] committed suicide. Client born in [facility] but grew up all over the place [...] he has a good relationship with. 10/21/2024 Generalized anxiety disorder (ICD-10 - F41.1) [...] committed suicide. Client born in [facility] but grew up all over the place [...] committed suicide. Client born in [facility] but grew up all over the place [...] who he has a good relationship with. 11/05/2024 Generalized anxiety disorder (ICD-10 - F41.1) Efra [...] committed suicide. Client born in [facility] but grew up all over the place [...] who he has a good relationship with. 01/14/2024 Major depressive disorder, recurrent, in full remission (ICD-10 - F33.42) 01/14/2024 Generalized anxiety disorder (ICD-10 - F41.1) 11/05/2024 Recurrent major depressive disorder, in full remission (ICD-10 - F33.42) Efra Nina [...] committed suicide. Client born in [facility] but grew up all over the place [...] he has a good relationship with. 11/26/2024 Generalized anxiety disorder (ICD-10 - F41.1) [...] committed suicide. Client born in [facility] but grew up all over the place [...] committed suicide. Client born in [facility] but grew up all over the place [...] committed suicide. Client born in [facility] but grew up all over the place [...] who he has a good relationship with. 11/05/2024 Chronic post-traumatic stress disorder (ICD-10 - F43.12) Efra Nina is a [...] committed suicide. Client born in [facility] but grew up all over the place [...] who he has a good relationship with. 07/14/2024 Other Increase imipramine to 150mg daily for anxiety. Patient educated on all medications including potential benefits, side effects, risks. Educated on proper dosing schedule and importance of compliance. [place] PDMP report checked and consistent with prescription history, no controlled substance prescriptions from other providers. 09/15/2024 Other Client participated in individual psychotherapy (CBT/Supportive) related to his hx of anxiety and depression. Based on today's session continued psychotherapy is recommended with no changes to treatment plan. Client presented to session well groomed and fully oriented with no risk of harm to self or others. Client verbal engaged and tearful throught out session. Reported upon presentation that he has felt better since last seen on 08.14.2024; has been calmer and less angry. Noted that has noticed difference in him and his mood. 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 He also spoke about stress associated with years of working for the [employer]. Client receptive to session feedback. Next session [...] committed suicide. Client born in [facility] but grew up all over the place [...] time in [place] and working for the [employer] and how both have contributed to his [...] committed suicide. Client born in [facility] but grew up all over the place [...] who he has a good relationship with. 11/05/2024 Other Client particiapted in individual psychotherapy (CBT/Supportive) [...] been doing good since last seen on 10.21.2023. Added that [facility]. Stated that he found the 20 minute eval frustrarting and a waste of time. Bothered by some of the questions he was asked by the [facility] toll booth operator. Focus of session continued to address his time in [place] and associated survival's guilt. Blieves he is in a good place with less anxiety depression and anger. Client receptive to session feedback. Next session [...] committed suicide. Client born in [facility] but grew up all over the place [...] Addded that he is looking forward to fishing trip later this month. Next session in [...] committed suicide. Client born in [facility] but grew up all over the place [...] with. Plan Of Treatment Next Appt Details Provider Name:Fred garvin, 12/15/2024 01:00:00 PM, [address], [facility] [address], [place], [address], Provider Name:Kiesha Diehl, 01/12/2025 08:45:00 AM, [address], [address], [place], [address], Insurance Providers Payer Name Payer Address Payer Phone Subscriber Number Group Number Insured Name Patient Relationship to Insured Coverage Start Date Coverage End Date All [facility] [address] [address] [place] [address] [id number] EFRA NINA Self - patient is the insured Medical (General) History Surgical History Surgery Date(Month/Year) Cataract surgery (27219) 07/06/2023
--- OUTSIDE RECORDS SUMMARY | 2024-12-07 13:19 | XMS_ITS ---
Author Organization [facility] Address [address] [address] Care Team Providers Care President + Publisher Name Role Phone Kiesha Diehl Unavailable [phone] Be Fred Unavailable [phone] REASON FOR VISIT Anger issues, mental issues over the years(suicidal, depression, panic attack, anxiety and paranoia, related to time he served in [employer] ),, phq less than 5 Medications Medication SIG (Take, Route, Fr equency, [...] smoker Encounters Encounter Location Date Provider Diagnosis [facility] [address] [address] 11/05/2024 Fred Lr Generalized anxiety disorder F41.1 ; Recurrent major depressive disorder, in full remission F33.42 and Chronic post-traumatic stress disorder F43.12 Assessments Encounter Date Diagnosis (ICD Code) Assessment Notes Treatment Notes Treatment Clinical Notes Section Notes 11/05/2024 Generalized anxiety disorder (ICD-10 - F41.1) [...] he believes committed suicide. Client born in [facility] but grew up all over the [...] he has a good relationship with. 11/05/2024 Recurrent major depressive disorder, in full [...] he believes committed suicide. Client born in [facility] but grew up all over the [...] he believes committed suicide. Client born in [facility] but grew up all over the [...] he had [place] with the [place] [facility] regarding his claim. Stated that he found the 20 minute eval frustrarting and a waste of time. Bothered by some of the questions he was asked by the [facility] merchant seaman. Focus of session continued to address his [...] he believes committed suicide. Client born in [facility] but grew up all over the [...] 12/15/2024 01:00:00 PM, [address], [place] [address], [place], [address], Provider Name:Kiesha Diehl, 01/12/2025 08:45:00 AM, [address], [facility] [address], [place], [address], Progress Notes * EFRA NINA EDUARDODOB:1945 (78 yo M)Acc No.[id number]:11/05/2024 Patient: EFRA JEREZ Provider: Edvin Lr LCPC :1945 A ge:78 Y S ex:Male Date:11/05/2024 Address:[address] [place], [place] [id number] Data: * Time Tracker: * Date Start Time End Time Duration User Type Captured By Mode Notes 11/05/2024 12:57 PM 01:57 PM 00:59:47 Therapist Fred Lr Timer * Chief Complaints: * Anger issues, mental issues over the years(suicidal, depression, panic attack, anxiety and paranoia, related to time he served in [employer] [facility] ),Phq less than 5 * HPI: F unctional Status: Referral source s elf-referral . A nger management w ith a history of intermittent explosive disorder with [...] compliance with medication therapy active counseling . D epression w ith feelings of guilt with sad mood with suicidal thoughts(last had thoughts ) with feeling of hopelessness and helplessness which has been long-standing(since 1994), aggravated by thoughts he was to blame for an ex employee's , and relieved by compliance with medication therapy active counseling . Homicidal ideation D enied by client . M ood lability D enied by client . ?Obsessive thoughts w hich cause marked distress which [...] enied by client . S uicidal ideation h as a history of previous suicide attempts(1994) last had thoughts in 1994, aggravated by(Time in [place] and of a former employee) and relieved by active counseling with access to local suicide hotline and prevention . A DHD D enied . P sychotherapy H x positive for out patient therapy. .?PTSD D enied . M manuel N o impairment present or history of memory concerns reports. . A ppetite u p and down . 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 C urrent probation / parole n o . H istory of arrests n o . H istory of incarcerations n o . L egal history n o . P ending charges n o . D epression Screening: ZOIE-7 (2018 Edition) F [...] awful might happen N ot at all [place]-Suicide Severity Rating Scale: Suicide Risk [...] to do anything to end your life? N o D epression screening: PHQ-9 L [...] egative S uicide Risk Assessment Performed 0 11/05/2024 * Social History: T obacco Use: T obacco Control (Standard) T obacco use: F ormer smoker M igrated Social History: M igrated Social History: Alcohol Intake: Occasional 01/14/2024,Tobacco Years: Former smoker 01/14/2024. H ousehold: H ousethierno M arital status: m arried * Medications: [...] anxiety disorder - F41.1 (Primary) 2 . R ecurrent major depressive disorder, in full remission - F33.42 3 . C hronic post-traumatic stress disorder - F43.12 Efra Nina is a 78 [...] he believes committed suicide. Client born in [facility] but grew up all over the [...] 9 6127 BEHAV ASSMT W/SCORE & DOCD/STAND [id number] PSYCHOTHERAPY W/PATIENT 60 MINUTES * Follow Up: 2 Weeks * Billing Information: * Visit Code: * Procedure Codes: 55685 BEHAV ASSMT W/SCORE & DOCD/STAND INSTRUMENT. 24321 PSYCHOTHERAPY W/PATIENT 60 MINUTES. * NCIAL INTERN Sign off status: Completed Signatures: No Ad Hoc Signature Added true * Provider: Edvin Lr LCPC Date: 11/05/2024 Generated for Ramy delgado/Milagro/Alexandra on: 12/07/2024 01:19 PM FINANCIAL INTERN History and Physical Notes * HPI (History [...] Findings: N egative Suicide Risk Assessment Performed: 11/05 Functional Status Referral s ource self-referral . Anger management with a history [...] up and down . 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 Current probation / parole no . History of arrests no . History of incarcerations no . Legal history no . Pending charges no . Depression Screening ZOIE-7 (2018 Edition) Feeling nervous, anxious, or on edge: Not at all Not being able to stop or control worryi ng: Not at all Worrying too much about different things : Not at all Trouble relaxing: Not at all Being so restless that it is hard to sit still: Not at all Becoming easily annoyed or irritable: No t at all Feeling afraid as if something awful teresa ht happen: Not at all [place]-Suicide Severity Rating Scale Suicide Risk (CSRS-screener) in the past one month Have you wished you were or wished you could go to sleep and not wake up?: No in the past one month Have y ou actually had any thoughts of killing yourself?: No Have you ever done anything, started to do anything, or prepared to do anything to end your life?: No
== END 2024-12-07 12:21 | disposition home or self-care (01) ==
PROVIDERS: Emergency Provider Nurse Practitioner; PCP Nurse Practitioner Family
DX: H61.23 Impacted cerumen, bilateral (principal); F41.9 Anxiety disorder, unspecified; F32.A Depression, unspecified
CPT/HCPCS: 69210; 99212; G0463

== ENCOUNTER 2025-06-24 19:06 | Emergency (ER) | payer MEDICARE, SELFPAY ==
--- OUTSIDE RECORDS SUMMARY | 2025-06-24 19:09 | XMS_ITS | Patient Health Record ---
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 Name Role Phone Kiesha Ryan Unavailable [phone] Fred Lr Unavailable [phone] Allergies No Known Allergies Reason For Referral No Information Medications Medication SIG (Take, Route, Frequency, Duration) Notes Start Date End Date Status Imipramine HCl 50 MG Tablet 3 tablets every night Oral Once a day; Duration: 90 days 06/15/2025 Active clonazePAM 1 MG Tablet 1 tablet Oral Onc e a day; Duration: 30 days 06/15/2025 Active Social History Tobacco Use: Social History Observation Description Date Details (start date - stop date) Former Smoker NA - NA Sex Assigned At : Social History Observation Description Sex Assigned At Male Social History Miscellaneous: Social Info Question Answer Notes Advance Care Planning Advance Directive FULL CODE Household: Social Info Question Answer Notes Household Marital status: Tobacco Use: Social Info Question Answer Notes Tobacco Control (Standard) Tobacco use: Former smoker Additional Details Category Social Info Options Details Migrated Social History Migrated Social History Alcohol Intake: Occasional 01/14/2024,Tobacco Years: Former smoker 01/14/2024 Problems Problem Type SNOMED Code ICD Code Onset Dates Problem Status W/U Status Risk Notes Problem Recurrent major depression in full remission (13297654) Major depressive disorder, recurrent, in full remission (F33.42) Active confirmed Problem Generalized anxiety disorder (45811730) Generalized anxiety disorder (F41.1) Active confirmed Vital Signs Heart Rate 72 /min 06/15/2025 Height-cm 190.5 cm 06/15/2025 Blood pressure diastolic 78 mm Hg 06/15/2025 Weight-kg 99.79 kg 06/15/2025 Height 75.00 in 06/15/2025 Blood pressure systolic 145 mm Hg 06/15/2025 Weight 220 lbs 06/15/2025 BMI 27.5 kg/m2 06/15/2025 Encounters Encounter Location Date Provider Diagnosis [place] [id number] [facility] [address] [place] [address] 07/14/2024 Kiesha Ryan Major depressive disorder, recurrent, in full remission F33.42 and Generalized anxiety disorder F41.1 [facility] [address] [address] 08/14/2024 Fred Lr Generalized anxiety disorder F41.1 and Major depression, recurrent, full remission F33.42 [facility] [address] [address] 09/15/2024 Fred Lr Generalized anxiety disorder F41.1 and Major depression, recurrent, full remission F33.42 [place] [address] [address] 10/21/2024 Fred Lr Generalized anxiety disorder F41.1 and Major depression, recurrent, full remission F33.42 [facility] [address] [address] 11/05/2024 Fred Lr Generalized anxiety disorder F41.1 ; Recurrent major depressive disorder, in full remission F33.42 and Chronic post-traumatic stress disorder F43.12 [facility] [address] [address] 11/26/2024 Fred Lr Generalized anxiety disorder F41.1 ; Major depression, recurrent, full remission F33.42 and Post-traumatic stress disorder, chronic F43.12 [facility] [address] [address] 12/15/2024 Fred Lr Generalized anxiety disorder F41.1 ; Major depression, recurrent, full remission F33.42 and Chronic post-traumatic stress disorder F43.12 [place] [id number] [facility] [address] [place] [address] 01/04/2025 Fred Lr Generalized anxiety disorder F41.1 and Post-traumatic stress disorder, chronic F43.12 [facility] [address] [facility] [address] [place] [address] 01/12/2025 Kiesha Ryan Encounter for screen ing for cardiovascular disorders Z13.6 ; Dietary counseling and surveillance Z71.3 ; Encounter for screening for depression Z13.31 ; Major depressive disorder, recurrent, in full remission F33.42 and Generalized anxiety disorder F41.1 [place] [address] [facility] [address] [place] [address] 01/25/2025 Fred Lr Generalized anxiety disorder F41.1 and Chronic post-traumatic stress disorder F43.12 [facility] [address] [facility] [address] [place] [address] 02/22/2025 Fred Lr Generalized anxiety disorder F41.1 ; Chronic post-traumatic stress disorder F43.12 and Negative depression screening Z13.31 [place] [address] [address] 03/17/2025 Fred Be Generalized anxiety disorder F41.1 and Chronic post-traumatic stress disorder F43.12 [place] [address] [facility] [address] [place] [address] 04/05/2025 Fred Lr Negative depression screening Z13.31 ; Generalized anxiety disorder F41.1 and Chronic posttraumatic stress disorder F43.12 [place] [address] [address] 05/10/2025 Fred Be Generalized anxiety disorder F41.1 and Chronic post-traumatic stress disorder F43.12 [place] [address] [address] 05/31/2025 Fred Lr Generalized anxiety disorder F41.1 and Post-traumatic stress disorder, chronic F43.12 [facility] [address] [facility] [address] [place] [address] 06/15/2025 Kiesha Ryan Generalized anxiety disorder F41.1 ; Encounter for screening for depression Z13.31 ; Encounter for screening for cardiovascular disorders Z13.6 ; Dietary counseling and surveillance Z71.3 and Major depressive disorder, recurrent, in full remission F33.42 [place] [address] [facility] [address] [place] [address] 07/14/[address] [facility] [address] [place] [address] 08/05/2024 Kieshacallie Ryan [facility], [facility] [address] [place] [address] 08/07/2024 Kieshacallie Ryan [facility], [facility] [address] [place] [address] 08/14/2024 Kiesha Ryan [facility], [facility] [address] [place] [address] 02/01/2025 Kieshacallie Ryan [facility] [place] [address] [place] [address] 02/01/2025 Kiesha Ryan Assessments Encounter Date Diagnosis (ICD Code) Assessment [...] he believes committed suicide. Client born in [facility] but grew up all over the place due to father's employment. He described childhood a good in spite of having moved around a lot. Client has been for many years and has a son and daugher. Relationship with children is good. Relationship with mother was better then with father, we butted heads a lot. Client is one three; two brothers who [...] he believes committed suicide. Client born in [facility] but grew up all over the place due to father's employment. He described childhood a good in spite of having moved around a lot. Client has been for many years and has a son and daugher. Relationship with children is good. Relationship with mother was better then with father, we butted heads a lot. Client is one three; two brothers who [...] he believes committed suicide. Client born in [facility] but grew up all over the place due to father's employment. He described childhood a good in spite of having moved around a lot. Client has been for many years and has a son and daugher. Relationship with children is good. Relationship with mother was better then with father, we butted heads a lot. Client is one three; two brothers who [...] he believes committed suicide. Client born in [facility] but grew up all over the place due to father's employment. He described childhood a good in spite of having moved around a lot. Client has been for many years and has a son and daugher. Relationship with children is good. Relationship with mother was better then with father, we butted heads a lot. Client is one three; two brothers who he has a good relationship with. 11/05/2024 Generalized anxiety disorder (ICD-10 - F41.1) Efra Nnia is a 78 year old male seen [...] he believes committed suicide. Client born in [facility] but grew up all over the place due to father's employment. He described childhood a good in spite of having moved around a lot. Client has been for many years and has a son and daugher. Relationship with children is good. Relationship with mother was better then with father, we butted heads a lot. Client is one three; two brothers who [...] he believes committed suicide. Client born in [facility] but grew up all over the place due to father's employment. He described childhood a good in spite of having moved around a lot. Client has been for many years and has a son and daugher. Relationship with children is good. Relationship with mother was better then with father, we butted heads a lot. Client is one three; two brothers who [...] he believes committed suicide. Client born in [facility] but grew up all over the place due to father's employment. He described childhood a good in spite of having moved around a lot. Client has been for many years and has a son and daugher. Relationship with children is good. Relationship with mother was better then with father, we butted heads a lot. Client is one three; two brothers who [...] he believes committed suicide. Client born in [facility] but grew up all over the place due to father's employment. He described childhood a good in spite of having moved around a lot. Client has been for many years and has a son and daugher. Relationship with children is good. Relationship with mother was better then with father, we butted heads a lot. Client is one three; two brothers who he has a good relationship with. 03/17/2025 Generalized anxiety disorder (ICD-10 - F41.1) 03/17/2025 Chronic post-traumatic stress disorder (ICD-10 - F43.12) 04/05/2025 Generalized anxiety disorder (ICD-10 - F41.1) 04/05/2025 Negative depression screening (ICD-10 - Z13.31) 05/10/2025 Generalized anxiety disorder (ICD-10 - F41.1) 05/10/2025 Chronic post-traumatic stress disorder (ICD-10 - F43.12) 01/12/2025 Encounter for screening for cardiovascular disorders (ICD-10 - Z13.6) 06/15/2025 Generalized anxiety disorder (ICD-10 - F41.1) 05/31/2025 Generalized anxiety disorder (ICD-10 - F41.1) 05/31/2025 Post-traumatic stress disorder, chronic (ICD-10 - F43.12) 02/22/2025 Generalized anxiety disorder (ICD-10 - F41.1) 02/22/2025 Chronic post-traumatic stress disorder (ICD-10 - F43.12) 01/25/2025 Generalized anxiety disorder (ICD-10 - F41.1) Efra Nina is a 78 year old male seen today for initial assessment to start individual psychotherapy. He has seen Kiesha Deihl for medication therapy. Hx of depression, which [...] he believes committed suicide. Client born in [facility] but grew up all over the place due to father's employment. He described childhood a good in spite of having moved around a lot. Client has been for many years and has a son and daugher. Relationship with children is good. Relationship with mother was better then with father, we butted heads a lot. Client is one three; two brothers who he has a good relationship with. 01/25/2025 Chronic post-traumatic stress disorder (ICD-10 - F43.12) [...] he believes committed suicide. Client born in [facility] but grew up all over the place due to father's employment. He described childhood a good in spite of having moved around a lot. Client has been for many years and has a son and daugher. Relationship with children is good. Relationship with mother was better then with father, we butted heads a lot. Client is one three; two brothers who he has a good relationship with. 12/15/2024 Generalized anxiety disorder (ICD-10 - F41.1) Efra [...] he believes committed suicide. Client born in [facility] but grew up all over the place due to father's employment. He described childhood a good in spite of having moved around a lot. Client has been for many years and has a son and daugher. Relationship with children is good. Relationship with mother was better then with father, we butted heads a lot. Client is one three; two brothers who he has a good relationship with. 12/15/2024 Major depression, recurrent, full remission (ICD-10 - [...] he believes committed suicide. Client born in [facility] but grew up all over the place due to father's employment. He described childhood a good in spite of having moved around a lot. Client has been for many years and has a son and daugher. Relationship with children is good. Relationship with mother was better then with father, we butted heads a lot. Client is one three; two brothers who he has a good relationship with. 01/04/2025 Generalized anxiety disorder (ICD-10 - F41.1) Efra [...] he believes committed suicide. Client born in [facility] but grew up all over the place due to father's employment. He described childhood a good in spite of having moved around a lot. Client has been for many years and has a son and daugher. Relationship with children is good. Relationship with mother was better then with father, we butted heads a lot. Client is one three; two brothers who he has a good relationship with. 01/04/2025 Post-traumatic stress disorder, chronic (ICD-10 - F43.12) [...] he believes committed suicide. Client born in [facility] but grew up all over the place due to father's employment. He described childhood a good in spite of having moved around a lot. Client has been for many years and has a son and daugher. Relationship with children is good. Relationship with mother was better then with father, we butted heads a lot. Client is one three; two brothers who [...] he believes committed suicide. Client born in [facility] but grew up all over the place due to father's employment. He described childhood a good in spite of having moved around a lot. Client has been for many years and has a son and daugher. Relationship with children is good. Relationship with mother was better then with father, we butted heads a lot. Client is one three; two brothers who [...] he believes committed suicide. Client born in [facility] but grew up all over the place due to father's employment. He described childhood a good in spite of having moved around a lot. Client has been for many years and has a son and daugher. Relationship with children is good. Relationship with mother was better then with father, we butted heads a lot. Client is one three; two brothers who he has a good relationship with. 06/15/2025 Encounter for screening for depression (ICD-10 - Z13.31) 12/15/2024 Chronic post-traumatic stress disorder (ICD-10 - F43.12) [...] he believes committed suicide. Client born in [facility] but grew up all over the place due to father's employment. He described childhood a good in spite of having moved around a lot. Client has been for many years and has a son and daugher. Relationship with children is good. Relationship with mother was better then with father, we butted heads a lot. Client is one three; two brothers who he has a good relationship with. 01/12/2025 Dietary counseling and surveillance (ICD-10 - Z71.3) 04/05/2025 Chronic posttraumatic stress disorder (ICD-10 - F43.12) 11/26/2024 Post-traumatic stress disorder, chronic (ICD-10 - [...] he believes committed suicide. Client born in [facility] but grew up all over the place due to father's employment. He described childhood a good in spite of having moved around a lot. Client has been for many years and has a son and daugher. Relationship with children is good. Relationship with mother was better then with father, we butted heads a lot. Client is one three; two brothers who [...] he believes committed suicide. Client born in [facility] but grew up all over the place due to father's employment. He described childhood a good in spite of having moved around a lot. Client has been for many years and has a son and daugher. Relationship with children is good. Relationship with mother was better then with father, we butted heads a lot. Client is one three; two brothers who he has a good relationship with. 01/12/2025 Encounter for screening for depression (ICD-10 - Z13.31) 06/15/2025 Encounter for screening for cardiovascular disorders (ICD-10 - Z13.6) 02/22/2025 Negative depression screening (ICD-10 - Z13.31) 06/15/2025 Dietary counseling and surveillance (ICD-10 - Z71.3) 06/15/2025 Major depressive disorder, recurrent, in full remission (ICD-10 - F33.42) 01/12/2025 Major depressive disorder, recurrent, in full remission (ICD-10 - F33.42) 01/12/2025 Generalized anxiety disorder (ICD-10 - F41.1) 07/14/2024 Other Increase imipramine to 150mg daily for anxiety. Patient educated on all medications including potential benefits, side effects, risks. Educated on proper dosing schedule and importance of compliance. [place] PDMP report checked and consistent with prescription history, no controlled substance prescriptions from other providers. 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 He also spoke about stress associated with years of working for the [employer]. Client receptive to session feedback. Next session [...] he believes committed suicide. Client born in [facility] but grew up all over the place due to father's employment. He described childhood a good in spite of having moved around a lot. Client has been for many years and has a son and daugher. Relationship with children is good. Relationship with mother was better then with father, we butted heads a lot. Client is one three; two brothers who he has a good relationship with. 10/21/2024 Other Client participated in individual psychotherapy(C BT/Supportive) related to his hx of anxiety and [...] time in [place] and working for the [employer] and how both have contributed to his [...] he believes committed suicide. Client born in [facility] but grew up all over the place due to father's employment. He described childhood a good in spite of having moved around a lot. Client has been for many years and has a son and daugher. Relationship with children is good. Relationship with mother was better then with father, we butted heads a lot. Client is one three; two brothers who he has a good relationship with. 11/05/2024 Other Client particiapted in individual psychotherapy (CBT/Supportive ) related to his hx of anxiety depression [...] questions he was asked by the [employer]. Focus of session continued to address his [...] he believes committed suicide. Client born in [facility] but grew up all over the place due to father's employment. He described childhood a good in spite of having moved around a lot. Client has been for many years and has a son and daugher. Relationship with children is good. Relationship with mother was better then with father, we butted heads a lot. Client is one three; two brothers who he has a good relationship with. 11/26/2024 Other Client particiapted in individual psychotherapy (CBT/Supportive ) related to his hx of anxiety depression [...] Addded that he is [place] to [place] later this [place]. Next session in [...] he believes committed suicide. Client born in [facility] but grew up all over the place due to father's employment. He described childhood a good in spite of having moved around a lot. Client has been for many years and has a son and daugher. Relationship with children is good. Relationship with mother was better then with father, we butted heads a lot. Client is one three; two brothers who he has a good relationship with. 12/15/2024 Other Clinical Notes : Client particiapted in individual psychotherapy (CBT/Supportive ) related to his hx of anxiety depression and PTSD. Based on today's session continued psychotherapy is recommended with no changes to treatment plan. Client presented well groomed and fully oriented with no risk of harm to self or others. Client verbal and engaged through out session and became tearful at one point. Reported upon presentation that he has been not too bad since last seen on 11.26.2024. Added that he returned from a fly fishing trip with some friends yesterday. Spent the weekend in [place] with three friends. Stated that while it was good to get away he was ready to come home to . Session continued to address his time in [place], work on [place] as well as relationship with of 53 years. Client receptive to session feedback. Next session in three weeks. Efra Nina [...] he believes committed suicide. Client born in [facility] but grew up all over the place due to father's employment. He described childhood a good in spite of having moved around a lot. Client has been for many years and has a son and daugher. Relationship with children is good. Relationship with mother was better then with father, we butted heads a lot. Client is one three; two brothers who he has a good relationship with. 01/04/2025 Other Clinical Notes : Client particiapted in individual psychotherapy (CBT/Supportive ) related to his hx of anxiety depression and PTSD. Based on today's session continued psychotherapy is recommended with no changes to treatment plan. Client presented well groomed and fully oriented with no risk of harm to self or others. Client verbal and engaged through out session and became tearful at one point. Reported upon presentation that he has been okay since last seen on 12.15.2024. Added that he had a good weekend sent with his . Anxiety continous to be little to none since last seen as well. Noted that he has been going to the gym at least three days a week. Session continued to focus on his time in [place] and of co-worker while at the [employer]. Noted that the of his co-worker awoke his time in [place]. Client also spoke about his first and only psych admission due to suicidal ideatons. Client receptive session feedback. Next session in three weeks. Efra Nina [...] he believes committed suicide. Client born in [facility] but grew up all over the place due to father's employment. He described childhood a good in spite of having moved around a lot. Client has been for many years and has a son and daugher. Relationship with children is good. Relationship with mother was better then with father, we butted heads a lot. Client is one three; two brothers who he has a good relationship with. 01/12/2025 Other Stable, cont current medications. -refills sent in. Patient educated on all medications including potential benefits, side effects, risks. Educated on proper dosing schedule and importance of compliance. [place] PD[place] report checked and consistent with prescription history, no controlled substance prescriptions from other providers. Cont counseling with Fred -Assessment and treatment plan reviewed with patient. -Compliance with treatment plan importance discussed. -Discussed the risks/benefits of this medication -Discussed medication side effects. -Contact office if symptoms worsen. -Discussed that it can take up to 6-8 weeks to see full therapeutic effects of psychotropic medications. -Crisis prevention hotline 988. 01/25/2025 Other Clinical Notes : Client particiapted in individual psychotherapy (CBT/Supportive ) related to his hx of anxiety depression and PTSD. Based on today's session continued psychotherapy is recommended with no changes to treatment plan. Client presented well groomed and fully oriented with no risk of harm to self or others. Client verbal and engaged through out session wih appropriate mood and affect. Reported upon presentation that he has been good since last seen on 01.04.2025. Noted that he is excited about an upcoming fly fishing trip out [place] in April with 8 friends. Expressed concern about one of the eight who may not be going. Client added that he was asked to do a Podcast on his experiences in [place]. Added that he has not had any nightmares but has had some flashabacks. But they not long lasting and have not caused any problems in his daily life. Noted that he continues to do well with no complaints. Client receptive to session feedback. Next session three weeks. Efra Nina is a 78 [...] he believes committed suicide. Client born in [facility] but grew up [place] due to father's employment. He described childhood a good in spite of having moved around a lot. Client has been for many years and has a son and daugher. Relationship with children is good. Relationship with mother was better then with father, we butted heads a lot. Client is one three; two brothers who he has a good relationship with. 02/22/2025 Other Client particiapted in individual psychotherapy (CBT/Supportive ) related to his hx of anxiety depression and PTSD. Based on today's session continued psychotherapy is recommended with no changes to treatment plan. Client presented well groomed and fully oriented with no risk of harm to self or others. Client verbal and engaged through out session wih appropriate mood and affect. Reported upon presentation that he has been doing okay since last seen on 01.25.2025. Added that he had a good weekend spent doing yard work with . Added he had company as well. Mood has been okay as well with little anxiety to speak of. Noted that one his claims was denied by the [employer] but is not too concerned about it. Session continued to address his time in [place] and subsequent anxiety and depression. Spoke about how he never spoke about his experiences in [place] once he came back home. Stated that his brother recently read something he had wriiten about his time in [place] and cried after reading it. Client receptive to session feedback. In next session in two weeks. 03/17/2025 Other Client particiapted in individual psychotherapy (CBT/Supportive ) related to his hx of anxiety depression and PTSD. Based on today's session continued psychotherapy is recommended with no changes to treatment plan. Client presented well groomed and fully oriented with no risk of harm to self or others. Client verbal and engaged through out session wi appropriate mood and affect. Reported upon presentation that he has been doing okay since last seen on 02.22.2025. Added that not much is new in his life since last seen. Added that he and are leaving tomorrow for [place] to attend 's family reunion and will be back on Saturday. Added that his second claim with the VA has been denied again but is not worried or concerned and will not be appealing denial. 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 Client stated that his nightmares and flasbacks have been less but still present. Session continued to address his time in [place] and associated anxiety and PTSD symptoms. Client also spoke about his time working for the [employer] and the of a co-worker. Client receptive to session feedback. Next session in four weeks. 04/05/2025 Other Client particiapted in individual psychotherapy (CBT/Supportive ) related to his hx of anxiety depression and PTSD. Based on today's session continued psychotherapy is recommended with no changes to treatment plan. Client presented well groomed and fully oriented with no risk of harm to self or others. Client verbal and engaged through out session [facility] appropriate mood and affect. Reported upon presentation that he has been doing good since last seen on 03.17.2025. Added that he had a good weekend and celebarated Father's Day with his family. (Son came home). Client briefly spoke about current world events and his concerns. Added that he is optimistic about world events. Session continued to address his time in [place] as well of a co-worker. Noted that he does not have as many flashbacks and nights like he used to. Noted that they have become less. 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 Client excited about upcoming trip in a few weeks with some of his friends who are also veterans. Next session in four weeks as a result of trip. 05/10/2025 Other Client particiapted in individual psychotherapy (CBT/Supportive ) related to his hx of anxiety depression and PTSD. Based on today's session continued psychotherapy is recommended with no changes to treatment plan. Client presented well groomed and fully oriented with no risk of harm to self or others. Client verbal and engaged through out session [facility] appropriate mood and affect. Reported upon presentation that he has been good since last seen on 04.05.2025. Added that his trip was great and hated coming back to this weather due to the weather being so much nicer where he was at. Session continued to address client's time in [place] and the effect that it has had on his anxiety depression and of course PTSD. Believess that he may never get over his survivals guilt. Noted that he continues to question why his life was spared after so many were not. Flashbacks and night terrors have been less and less. Client also discussed the current political climate in this counr[place]. Stated that his optmistism has been getting lesss and less. Client receptive to session feedback. Next session in two weeks. 05/31/2025 Other Client particiapted in individual psychotherapy (CBT/Supportive ) related to his hx of anxiety depression and PTSD. Based on today's session continued psychotherapy is recommended with no changes to treatment plan. Client presented well groomed and fully oriented with no risk of harm to self or others. Client verbal and engaged through out session [facility] appropriate mood and affect. Reported upon presentation that he has been okay since last seen on 05.10.2025. Added that he and had been dog sitting for daughter and he has started to donate plasma and platelettes at the [facility] as a way of giving back. Bothered that it has been too hot for him to ride his bycycle. Session continued to address his frustration with the [facility] climate and his time in [place] as well time working for the [employer]. Less nigfhtmares and flashbacks repprted by client who belives he is happy, overall, and aging gracefully. Added that he is looking forward to an upcoming fishing trip in July. Next session in four weeks. 06/15/2025 Other Stable, cont current medications. -refills sent in. Patient educated on all medications including potential benefits, side effects, risks. Educated on proper dosing schedule and importance of compliance. [place] report checked and consistent with prescription history, no controlled substance prescriptions from other providers. Cont counseling with Fred -Assessment and treatment plan reviewed with patient. -Compliance with treatment plan importance discussed. -Discussed the risks/benefits of this medication -Discussed medication side effects. -Contact office if symptoms worsen. -Discussed that it can take up to 6-8 weeks to see full therapeutic effects of psychotropic medications. -Crisis prevention hotline 218. Plan Of Treatment Next Appt Details Provider Name:Fredernestina garvin, 07/06/2025 11:00:00 AM, [id number] [facility] [address], [facility] [address], [place], [address], Insurance Providers Payer Name Payer Address Payer Phone Subscriber Number Group Number Insured Name Patient Relationship to Insured Coverage Start Date Coverage End Date [facility] [address] [address] [place] [phone] [id number] EFRA NINA Self - patient is the insured Medical (General) History Medical History History ICD Code Problems: Generalized anxiety disorder 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
--- OUTSIDE RECORDS SUMMARY | 2025-06-24 19:09 | XMS_ITS | Clinical Summary ---
Author Organization [facility] Address [facility] [place] [address] Care Team Providers Care Undergraduate Advisor Name Role Phone Galilea Lewis JOSIAH Primary Care Provider [phone] Allergies No known active allergies Medications clonazePAM [...] Date Resolved Date Toenail fungus 05/13/2023 10/20/2024 Immunizations Immunization Administration Dates Next Due Fluzone High Dose [...] Comments Blood Pressure 136/70 10/20/2024 10:33 AM [employer] Pulse 75 10/20/2024 10:33 AM [employer] Temperature 36.8 C (98.2 F) 10/20/2024 10:33 AM [employer] Respiratory Rate 16 10/20/2024 10:33 AM [employer] Oxygen Saturation 97% 10/20/2024 10:33 AM [employer] Inhaled Oxygen Concentration - - Weight 99.4 kg (219 lb 3.2 oz) 10/20/2024 10:33 AM [employer] Height 188 cm (6' 2) 10/20/2024 10:33 AM [employer] Body Mass Index 28.14 10/20/2024 10:33 AM [employer] Plan of Treatment Health Maintenance Due Date Last Done Comments Annual Medicare Wellness Visit 2011 COVID-19 Vaccine ( season) 2025 07/05/2024, 07/19/2023, 08/09/2022, Additional history exists DTaP, Tdap and Td Vaccines (3 - Td or Tdap) 09/16/2033 09/16/2023, 10/19/2015 Pneumococcal Vaccine: 50+ Years Completed 01/01/2018, 12/27/2016 Zoster Vaccines Completed 04/07/2018, 12/23/2017 Hepatitis C Completed 05/14/2023 RSV Immunization or 60+ Years Completed 09/16/2023 PHQ-2 (Physician [place]) Completed 10/20/2024 Meningococcal B Vaccine Aged Out No l onger eligible based on patient's age to complete this topic Meningococcal Vaccine Aged Out No kong filomena eligible based on patient's age to complete this topic RSV Immunizations Under 20 Months Aged Out No longer eligible based on patient's age to complete this topic Procedures Procedure Name Priority Date/Time Associated Diagnosis Comments HEPATITIS C ANTIBODY Routine 05/14/2023 8:45 AM CDT Encounter for hepatitis C screening test for low risk patient from Last 3 Months or Most Recently Relevant to Health Maintenance Results * HEPATITIS C ANTIBODY ([facility] ONLY) (05/14/2023 8:45 AM CDT) HEPATITIS C AB NON-REACTI VE NON-REACT MIKE 05/14/2023 6:56 PM CDT [facility] Comment: ANTIBODIES TO HCV NOT DETECTED. DOES NOT EXCLUDE THE POSSIBILITY OF EXPOSURE TO HCV. 05/14/2023 8:45 AM CDT us [facility] Final Result [facility] [address] [place] [address], [id number] from Last 3 Months or Most Recently Relevant to Health Maintenance Insurance [facility] CIGNA CIGNA [facility] Care Teams Undergraduate Advisor Relationship Specialty Start Date End Date Galilea Lewis FNP [address] [place] [id number] PCP - General Nurse Practitioner Family 05/13/23
[2025-06-24 19:13] VITALS: BP 157/104; PULSE 79; RESP 18; TEMP 36.2; O2SAT 100
--- NOTE | 2025-06-24 19:29 | ED_ITS ---
HPI - General Adult General Chief complaint: Ear Stated complaint: LT Ear Pain Time Seen by Provider: 06/24/25 19:18 Source: patient, family () and RN notes reviewed Mode of arrival: ambulatory Limitations: no limitations History of Present Illness HPI narrative: Patient presents today complaining of pain and tenderness to the right lower jaw area that started last night when he was chewing a grape. Pain resolved after eating but started again today when he ate breakfast. States pain is only with the eating/chewing. States he also develops swelling to this area but this has since mostly subsided prior to arrival. Denies pain when opening and closing the mouth. Denies tooth pain. Denies fever or recent illness, shortness of breath, difficulty swallowing. No history of TMJ. No OTC treatment prior to arrival. Related Data Home Medications ?Medication ?Instructions ?Recorded ?Confirmed ?Last Taken ?Type clonazepam 1 mg tablet 1 mg PO DAILY 02/14/2312/12 Unknown History imipramine HCl 50 mg tablet mg 06/24/25 Unknown Histo ry Allergies Allergy/AdvReac Type Severity Reaction Status Date / Time No Known Allergies Allergy Verified 06/24/25 19:13 [facility] Family History Family History Father Hypertension Family history of lung cancer Grandparent Family history of lung cancer Social History Social History Alcohol intake: current Comments At time of signature, I have reviewed and agree with nursing past medical, surgical, social and family history unless otherwise noted. Please see nursing chart for further information. There is no relevant family history pertinent to the presenting complaint Exam Narrative: GENERAL: Well-appearing, well-nourished, and in no acute distress. HEAD: Normocephalic, atraumatic. EYES: EOMI. No redness or drainage. Conjunctivae normal. ENT: Mucous membranes pink and moist. Nares clear. No rhinorrhea. TMs normal bilaterally. No left mastoid tenderness, swelling, erythema. Throat normal. Uvula midline. Teeth are nontender. No tenderness of the left TM joint. No trismus. Very mild Tenderness overlying the parotid gland, but no erythema, edema. No lymphadenopathy noted along the jaw line, neck, or pre-auricular area. NECK: Normal AROM. Supple. No lymphadenopathy. CHEST: No respiratory distress. EXTREMITIES: Normal range of motion. No edema. SKIN: Warm, dry, no rash. Capillary refill normal. Normal skin turgor. NEURO: No focal deficits. Alert and oriented x3. Gait steady. PSYCH: Normal affect. No signs of depression or anxiety. Course Course Level of Care: Express Care Visit Vital Signs Vital signs: Vital Signs Temperature 97.2 F L 06/24/25 19:13 Pulse Rate 79 06/24/25 19:13 Respiratory Rate 18 06/24/25 19:13 Blood Pressure 157/104 H 06/24/25 19:13 Pulse Oximetry 100 06/24/25 19:13 Oxygen Delivery Room Air 06/24/25 19:13 Temperature 97.2 F L 06/24/25 19:13 Pulse Rate 79 06/24/25 19:13 Respiratory Rate 18 06/24/25 19:13 Blood Pressure 157/104 H 06/24/25 19:13 Pulse Oximetry 100 06/24/25 19:13 Oxygen Delivery Room Air 06/24/25 19:13 Reviewed Medical Decision Making MDM Narrative Medical decision making narrative: 79-year-old male patient presents complaining of pain to the left lower jaw line that only occurs while eating. Symptoms began last night. Also reports some intermittent swelling to the area that is not currently present. He is not currently having pain to the area. Denies tooth pain, ear pain. Upon exam there is some very mild tenderness overlying the area of the left parotid gland without erythema or edema noted. Exam is otherwise normal. Patient could have a very early parotitis or salivary stone vs TM joint dysfunction vs dental issue. Will treat with Augmentin. Recommend PCP follow up next week if symptoms have not improved. Strict ED precautions given if symptoms worsen. Patient agrees with plan. Differential Diagnosis Differential Diagnosis: Parotitis, sialolithiasis, TM joint dysfunction Vital Signs Vital Signs: Vital Signs Temperature 97.2 F L 06/24/25 19:13 Pulse Rate 79 06/24/25 19:13 Respiratory Rate 18 06/24/25 19:13 Blood Pressure 157/104 H 06/24/25 19:13 Pulse Oximetry 100 06/24/25 19:13 Oxygen Delivery Room Air 06/24/25 19:13 Temperature 97.2 F L 06/24/25 19:13 Pulse Rate 79 06/24/25 19:13 Respiratory Rate 18 06/24/25 19:13 Blood Pressure 157/104 H 06/24/25 19:13 Pulse Oximetry 100 06/24/25 19:13 Oxygen Delivery Room Air 06/24/25 19:13 Critical Care Time Critical Care Time Critical Care Time: No Discharge Plan Discharge Clinical Impression: Jaw pain Patient Disposition: Home Condition: Stable Instructions: Antibiotic Form Additional Instructions: The cause of your symptoms is somewhat unclear. Please start the Augmentin and take as directed. Take tylenol for pain if needed. Suck on some sour candies to promote saliva production. As discussed, if you start running a fever, have worsening swelling or redness to your face, or otherwise start feeling worse, go to the emergency room immediately. If symptoms persist but do not worsen, please follow-up with your PCP next week. Your blood pressure was elevated above 120/80 today at Urgent Care. This puts you above the threshold for follow up. Please schedule a followup visit with your personal physician as soon as possible, for further evaluation and treatment. Even blood pressure exceeding 120/80 may indicate pre-hypertension. Patient Language: Danish Prescriptions: New amoxicillin-pot clavulanate 875-125 mg tablet 1 tablet PO Q12H 7 Days Qty: 14 0RF No Action clonazepam 1 mg tablet 1 mg PO DAILY imipramine HCl 50 mg tablet Follow-up/Referrals: ZHANE,TEX ROACH [Primary Care Provider] Time of Disposition: 19:33
== END 2025-06-24 19:43 | disposition home or self-care (01) ==
PROVIDERS: Emergency Provider Nurse Practitioner; PCP Nurse Practitioner Family
DX: R68.84 Jaw pain (principal)
CPT/HCPCS: 99213; G0463